=== PATIENT | female | born 1960 | race Caucasian/White ===

== ENCOUNTER 2017-10-28 18:11 | Inpatient (IN) | payer MEDICAID, OTHER ==
[2017-10-28 18:42] LABS: Bilirubin Negative (Negative); Blood, Urine Trace (Negative); Clarity CLEAR (Clear); Glucose, Urine (Dipstick) >=1000 mg/dL (Negative); Leukocyte Negative (Negative); Nitrite Negative (Negative); Protein, Urine (Dipstick) Negative (Neg-Trace); Specific Gravity, Urine 1.034 (1.002-1.036); Urobilinogen 0.2 mg/dL (0.2-1.0)
[2017-10-28 18:59] LABS: Bacteria/HPF 2+ HPF (None Seen); Hyaline Casts/LPF NONE SEEN LPF (0-3 Hyaline); Squamous Epithelial 0-3 HPF (0-3); WBC/HPF 0-3 HPF (0-3)
[2017-10-28] MEDS ORDERED: Lorazepam 2 MG/ML VIAL ONE (19:07)
[2017-10-28 19:11] LABS: Hemoglobin 12.4 g/dL (12.0-16.0); Mean Corpuscular HGB CONC 31.8 g/dL (32.0-36.0); Mean Corpuscular Hemoglobin 31.4 pg (27.0-31.0); Mean Platelet Volume 8.1 fL (7.4-10.4); Platelet Count 249 thou/uL (130-400); RBC Distribution Width 11.7 % (11.5-14.5); Red Blood Cell (RBC) Count 3.94 mill/uL (4.20-5.40)
[2017-10-28 19:25] LABS: Band 20 % (5-11); Lymphocytes 1 % (21-51); MDiff Complete? YES; Monocytes 1 % (0-10); Neutrophil 78 % (42-75); PLT Morphology Comment Appears Adequate; RBC Morphology Normal
[2017-10-28 19:36] LABS: CKMB 2.2 ng/mL (0-6.6)
[2017-10-28 19:41] LABS: ALT (SGPT) 57 U/L (8-55); AST (SGOT) 47 U/L (5-34); Albumin 3.2 g/dL (3.5-5.0); Alcohol Less than 10 mg/dL (Less than 10); Alkaline Phosphatase 147 U/L (40-150); Anion Gap 23 mmol/L (10-20); BUN (Urea Nitrogen) 17 mg/dL (9.8-20.1); Bilirubin, Total 0.5 mg/dL (0.2-1.2); Calc. Creatinine Clearance 0 mL/min (70-130); Calcium 8.3 mg/dL (7.8-10.44); Carbon Dioxide 10 mmol/L (22-29); Chloride 103 mmol/L (98-107); Estimated GFR-MDRD 25; Globulin 2.3 g/dL (2.4-3.5); Magnesium 1.9 mg/dL (1.6-2.6); Potassium 3.9 mmol/L (3.5-5.1); Protein, Total 5.5 g/dL (6.0-8.3); Sodium 132 mmol/L (136-145)
[2017-10-28 19:41] LABS: Acetaminophen Less than 6.0 mcg/mL (10.0-30.0); Alcohol Less than 10 mg/dL (Less than 10); Phosphorus 4.1 mg/dL (2.3-4.7); Salicylate Less than 8.0 mg/dL (15.0-30.0)
--- NOTE | 2017-10-28 19:57 | RAD ---
AP VIEW OF THE CHEST: 10/28/17 INDICATION: Altered mental status. COMPARISON: None. FINDINGS: The lungs are clear. Heart size is within normal limits. There is moderate COPD change. No acute osse ous abnormality is evident. IMPRESSION: COPD. POS: [facility]
[2017-10-28 20:00] LABS: Glucose 1634 mg/dL (70-105)
[2017-10-28] MEDS ORDERED: Sodium Chloride 0.9% 1,000 ML IV PRN ×4 (20:20)
[2017-10-28] MEDS ORDERED: D5 1/2 NS w/20 mEq KCL 1,000 ML IV PRN (20:20)
[2017-10-28] MEDS ORDERED: NS 0.9% w/ 20 MEQ KCL 1,000 ML IV PRN ×2 (20:20)
[2017-10-28] MEDS ORDERED: Dextrose 5 %-0.45 % NaCl 1,000 ML IV PRN (20:20)
[2017-10-28] MEDS ORDERED: CCU Electrolyte Replacement 1 EACH IVPB ONE (20:20)
[2017-10-28] MEDS ORDERED: Labetalol HCl 100 MG/20 ML VIAL ONE (20:27)
[2017-10-28] MEDS ORDERED: Insulin Regular 300 UNITS/3 ML VIAL ONE (20:27)
[2017-10-28 20:29] LABS: Base Excess-Venous -14.8 mmol/L (0 (+/- 2.5)); Bicarbonate (HCO3v) 10.3 mmol/L (1.0-85.0); CO2 Tension (PvCO2) 22.9 mmHg (41.0-51.0); Calcium, Ionized 0.98 mmol/L (1.12-1.32); Hemoglobin - Calc 13.1 g/dL (12.0-18.0); O2 Tension (PvO2) 138.6 mmHg (35.0-45.0); Potassium 3.8 mmol/L (3.4-4.7); pH (Venous) 7.261 (7.35-7.45); vO2 Saturation-calc 98.8 % (94-98)
--- NOTE | 2017-10-28 20:36 | CT ---
CT OF THE BRAIN WITHOUT CONTRAST: 10/28/17 INDICATION: Mental status change. Last seen normal one week ago. COMPARISON: None. FINDINGS: There is a thin linear subdural hematoma overlying the right parietotemporal convexity with a large c ollection measuring 3.4 mm. No midline shift or hydrocephalus is evident. No acute infarct is demonst rated. The skull is intact. Mastoid cells are clear. IMPRESSION: Right parietotemporal subdural hematoma without underlying mass effect. Findings are called to Dr. Lowery at 8 p.m. on 10/28/17. Code CR POS: [facility]
[2017-10-28] MEDS ORDERED: CCU ELECTROLYTE REPLACEMENT PROTOCOL FS PRN (20:37)
[2017-10-28] MEDS ORDERED: Potassium Phosphate 12 MMOL in Sodium Chloride 0.9% 250 ML 250 ML IV PRN (20:37)
[2017-10-28] MEDS ORDERED: Magnesium 2 GM/NS 0.9% 100 ML 2 GM in Premix Bag 1 BAG IVPB PRN (20:37)
[2017-10-28] MEDS ORDERED: Potassium Chloride 40 MEQ in Premix Bag 1 BAG IVPB PRN (20:37)
[2017-10-28] MEDS ORDERED: Magnesium Oxide 400 MG TAB PO PRN ×2 (20:37)
[2017-10-28] MEDS ORDERED: Potassium Chloride 20 MEQ TAB PO PRN (20:37)
[2017-10-28] MEDS ORDERED: Potassium Phosphate 15 MMOL in Sodium Chloride 0.9% 250 ML 250 ML IV PRN (20:37)
[2017-10-28] MEDS ORDERED: Potassium Chloride 40 MEQ in Sodium Chloride 0.9% 250 ML 250 ML IVPB PRN (20:37)
[2017-10-28 20:44] LABS: INR-International Normal Ratio 1.2; PTT 22.9 SEC (22.9-36.1); Prothrombin Time 15.5 SEC (12.0-14.7)
[2017-10-28] MEDS ORDERED: NS 0.9% w/ 20 MEQ KCL 1,000 ML IV SCH (20:45)
[2017-10-28] MEDS ORDERED: Piperacillin/Tazobactam 4.5 GM VIAL ONE (20:45)
[2017-10-28] MEDS ORDERED: Labetalol HCl 100 MG/20 ML VIAL SLOW IVP PRN (20:53)
[2017-10-28] MEDS ORDERED: Pantoprazole 40 MG VIAL IVP SCH (21:00)
[2017-10-28 21:02] LABS: Hemoglobin A1c 16.7 % (4.0-6.0)
[2017-10-28 21:18] LABS: Anion Gap 23 mmol/L (10-20); BUN (Urea Nitrogen) 18 mg/dL (9.8-20.1); Calc. Creatinine Clearance 0 mL/min (70-130); Calcium 8.4 mg/dL (7.8-10.44); Carbon Dioxide 12 mmol/L (22-29); Chloride 106 mmol/L (98-107); Estimated GFR-MDRD 24; Potassium 3.6 mmol/L (3.5-5.1); Sodium 137 mmol/L (136-145)
[2017-10-28 21:21] LABS: CKMB 2.8 ng/mL (0-6.6); Critical Call Chem Troponin I RESULT DECREASING; Glucose 1511 mg/dL (70-105); Troponin I 0.363 ng/mL (< 0.028)
[2017-10-28] MEDS ORDERED: Dextrose 5% in Water 1,000 ML IV PRN (22:53)
[2017-10-28] MEDS ORDERED: Dextrose 50% Abboject 50 ML SYRINGE SLOW IVP PRN (22:53)
[2017-10-28] MEDS ORDERED: RENALLY ADJUST ANTIBIOTICS IVPB PRN (22:58)
[2017-10-28] MEDS ORDERED: Ondansetron HCl/PF 4 MG/2 ML Vial IVP PRN (22:59)
[2017-10-28] MEDS ORDERED: Ondansetron ODT 4 MG TAB SL PRN (22:59)
[2017-10-28] MEDS ORDERED: Acetaminophen 325 MG TAB PO PRN (22:59)
[2017-10-28 23:49] LABS: Amphetamine Not Detected (NotDetected); Barbiturates Screen Not Detected (NotDetected); Benzodiazepine Screen Not Detected (NotDetected); Cocaine Metabolite Screen Not Detected (NotDetected); Medtox Control Line Valid? VALID (VALID); Medtox Reader # READER 1; Methadone Not Detected (NotDetected); Methamphetamine Not Detected (NotDetected); Opiate Screen Not Detected (NotDetected); Oxycodone Screen Not Detected (NotDetected); Phencyclidine (PCP) Not Detected (NotDetected); THC/Cannabinoid Screen Not Detected (NotDetected); Tricyclic Screen Not Detected (NotDetected)
[2017-10-28 23:53] VITALS: BMI 13.3
[2017-10-29] MEDS: Sodium Bicarbonate 50 MEQ in Sodium Chloride 0.45% 1,000 ML IV SCH (00:04)
[2017-10-29 01:12] LABS: Glucose 1167 mg/dL (70-105)
[2017-10-29 01:13] LABS: Lactic Acid 7.6 mmol/L (0.5-2.2)
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
[2017-10-29] MEDS: Insulin Regular 300 UNITS/3 ML VIAL SC PRN ×3 (02:18→12:38)
--- NOTE | 2017-10-29 02:58 | CON ---
DATE OF CONSULTATION: 10/28/2017 HISTORY OF PRESENT ILLNESS: Ms. Johnson is a 57-year-old female who appears to be much older than her stated age. She presents to [facility] for evaluation of mental status changes . She was last seen on Wednesday by her son this week who reports that at that time she has normal men dion status. It was reported that she quit taking her medications last year for hypertension and diab etes. The patient is currently very heavy smoker. Today, she was found at 1600 hour with acute ment al status changes, slightly combative and very confused. After being brought to [facility], a CT of the brain showed a right-sided small subdural hematoma approximately 3 mm in julio meter with no midline shift. She also had an acute kidney injury and glucose of 1511. In addition, her presenting blood pressure was 148/27 and her heart rates were in 130s. She is given labetalol wh ich dropped her blood pressure and heart rate respectively. She is moving all extremities. She is n ot following my commands. She is slightly combative and her pupils are equally round and reactive to light. Her troponins were also elevated at 0.36 and she has COPD on x-ray of the chest. Neurosurge ry was consulted because of the findings on CT scan of the brain. ALLERGIES: No known drug allergies. CURRENT MEDICATIONS: Unknown. PAST MEDICAL HISTORY: The patient is altered. She is a poor historian. Family does not know past m edical history she has other than history of hypertension and diabetes. FEMALE SURGICAL HISTORY: The patient is altered and is unable to respond. PSYCHIATRIC HISTORY: Unable to obtain. SOCIAL HISTORY: The patient is currently uses tobacco. She smokes heavily every day. REVIEW OF SYSTEMS: Unable to obtain a review of systems because of her current mental status state w ith mental status changes. PHYSICAL EXAMINATION: VITAL SIGNS: Reviewed and within normal range. The patient is afebrile. She is tachycardic, hypert ensive, and respiratory rate is normal. GENERAL: The patient looks emaciated and cachectic. The patient is nonverbal, but moving all extrem ities. She looks much older than her stated age. HEENT: Normocephalic, atraumatic. Hearing intact. Moist mucous membranes. Trachea is midline. EYES: Pupils are equally round and reactive to light. Extraocular muscles are intact. Sclerae are white. RESPIRATORY: The patient has bilateral symmetric chest rise, appears to have no shortness of breath. CARDIOVASCULAR: The patient has a tachycardic rate, 2/6 right sternal border murmur. NEUROLOGIC: The patient is moving all extremities. She is unable to follow my commands because of h er acute mental status changes. Her GCS is 11. The patient moves to localized pain. She has confus ed verbal response and she opens her eyes to pain. Her speech is fluent, but she is using words that do not form sentences. There are no focal motor deficits or sensory deficits noted. The patient is not oriented to person, place or time. ASSESSMENT: Ms. Johnson is a 57-year-old female who presents with glucose of 1511, A1c of 16.7, eleva yadiel troponins of 0.36, acute kidney injury, and chronic obstructive pulmonary disease, status post fa ll with a CT of the head that shows a right parietotemporal subdural hematoma with no midline shift. PLAN: Neurosurgery will get a repeat CT scan of the brain without contrast tomorrow morning. Neuro checks overnight. Head of bed at 30 degrees. Medicine will admit to ICU and do medical workup. If there are any further questions, please feel free to contact Neurosurgery.
[2017-10-29] MEDS ORDERED: Piperacillin/Tazobactam 3.375 GM in Sodium Chloride 0.9% 100 ML IVPB SCH (03:00)
[2017-10-29 04:31] LABS: Anion Gap 16 mmol/L (10-20); BUN (Urea Nitrogen) 17 mg/dL (9.8-20.1); Calc. Creatinine Clearance 21 mL/min (70-130); Calcium 9.4 mg/dL (7.8-10.44); Carbon Dioxide 21 mmol/L (22-29); Chloride 115 mmol/L (98-107); Estimated GFR-MDRD 32; Potassium 3.5 mmol/L (3.5-5.1); Sodium 148 mmol/L (136-145)
[2017-10-29 04:33] LABS: CKMB 4.1 ng/mL (0-6.6)
[2017-10-29 05:04] LABS: Lactic Acid 6.1 mmol/L (0.5-2.2); Troponin I 0.799 ng/mL (< 0.028)
[2017-10-29 05:05] LABS: Glucose 778 mg/dL (70-105)
[2017-10-29] MEDS ORDERED: Sodium Chloride 0.9% 500 ML IV SCH (05:15)
[2017-10-29 05:31] LABS: Magnesium 2.2 mg/dL (1.6-2.6); Phosphorus 1.5 mg/dL (2.3-4.7)
[2017-10-29] MEDS ORDERED: Piperacillin/Tazobactam 2.25 GM in Sodium Chloride 0.9% 100 ML IVPB SCH (06:00)
[2017-10-29] MEDS: Potassium Phosphate 9 MMOL in Sodium Chloride 0.9% 100 ML IVPB PRN (06:38)
--- NOTE | 2017-10-29 07:39 | PRG ---
DATE OF SERVICE: 10/29/2017 I personally interviewed and examined the patient and agree with documentation of arden Neri PA-C 10/28/2017. Briefly, Ms. Bere Johnson is a 57-year-old woman who was brought to our emergency department yester day with altered mental status. She is extremely confused and disoriented. She is delirious. CT ex amination of the brain showed a tiny parietal occipital subdural hematoma over the right hemisphere. Neurosurgery was consulted. Her metabolic workup showed diabetic ketoacidosis and a blood sugar of over 1000. Overnight, she has been in the ICU having her metabolic derangement corrected slowly and a CT examination of the brain is available this morning for review. On seeing Ms. Johnson in the ICU, she wakes to her name. She opens her eyes with enough to loud voice with stimulus. She withdraws. She localizes quite well. She even follows some commands today, but she is clearly still in delirium from her metabolic encephalopathy. CT examination this morning shows almost complete resolution of the subdural hematoma. I can barely see any extraaxial fluid in the area of the subdural yesterday. There is no mass effect, no midline shift. She will not need neurosurgical intervention. We will follow up with Ms. Johnson in our neurosurgery offices in about 2-3 weeks. During this hospit alization, our neurosurgery team will be available for questions, but it is very unlikely she would b enefit from our interventional services.
[2017-10-29] MEDS ORDERED: VANC/ZOSYN IVPB PRN (08:27)
--- NOTE | 2017-10-29 08:41 | CT ---
PRELIMINARY REPORT/[facility]/EMERGENTY AFTER-HOURS PROCEDURE CT Head Without Intravenous Contrast CLINICAL HISTORY: 57 years old, female; Condition or disease; Other: Sdh; Patient HX: F/u sdh TECHNIQUE: Axial computed tomography images of the head/brain without intravenous contrast. COMPARISON: CT Brain WO Con 2017-10-28 19:43 FINDINGS: Prior exam showed small acute subdural hematoma in the right temporal and parietal regions. The subdu ral hematoma is now significantly smaller, only barely visible in the right temporal/parietal region. Currently, it only measures 2 mm in maximum thickness, with visible longitudinally length about 1.5-2.0 cm. Previously it measured 4 mm in thickness and significantly longer in longitudinal l ength, up to 7-8 cm. No definite new hemorrhage in the interval. No significant mass effect or midline shift. Ventricle size is normal for age. No definite acute infarct by CT. No definite acute skull fracture. Included paranasal sinuses are essentially clear. IMPRESSION: Significant decrease in size in the previously seen right subdural hematoma, details above. No definite new hemorrhage in the interval. No significant mass effect or midline shift. Thank you for allowing us to participate in the care of your patient. Dictated and Authenticated by: Yg Barker MD 10/29/2017 6:08 AM Central Time ([place] & [place]) FINAL REPORT HEAD CT WITHOUT CONTRAST: DATE: 10/29/17. COMPARISON: 10/28/17. HISTORY: Reevaluate intracranial hemorrhage. FINDINGS: I agree with the preliminary [facility] report. Minimal right-sided subdural blood noted on axial image 1 5, decreased in volume when compared to the prior examination. Imaged paranasal sinuses and mastoid air cells are well aerated. There is no displaced calvarial fracture. IMPRESSION: Minimal right-sided subdural hemorrhage, decreased in volume since the prior examination. No new hem orrhage seen. POS: [facility]
[2017-10-29] MEDS: Pantoprazole 40 MG VIAL IVP SCH ×2 (08:42→21:13)
[2017-10-29 08:51] LABS: Hemoglobin 11.5 g/dL (12.0-16.0); Platelet Count 177 thou/uL (130-400)
[2017-10-29 09:48] LABS: Anion Gap 14 mmol/L (10-20); BUN (Urea Nitrogen) 13 mg/dL (9.8-20.1); Calc. Creatinine Clearance 28 mL/min (70-130); Calcium 8.8 mg/dL (7.8-10.44); Carbon Dioxide 23 mmol/L (22-29); Chloride 123 mmol/L (98-107); Estimated GFR-MDRD 46; Glucose 387 mg/dL (70-105); Sodium 156 mmol/L (136-145)
[2017-10-29] MEDS: Sodium Chloride 0.45% 1,000 ML IV SCH ×3 (10:13→22:19)
[2017-10-29] MEDS: Vancomycin HCl 750 MG in Sodium Chloride 0.9% 250 ML 250 ML IVPB SCH (10:50)
--- NOTE | 2017-10-29 11:34 | PRG ---
DATE OF SERVICE: 10/29/2017 SUBJECTIVE: Ms. Johnson is a 57-year-old female who I saw in her ICU room this morning. She is status post right-sided subdural hematoma as well as multiple other medical issues. This morning, her blood glucose has dropped to 778 from 1511. Her sodium this morning is 148. She had a repeat CT scan done of the brain this morning that showed almost complete resolution of the right-sided subdural hematoma. There is plenty of room in the cranial vault for her brain and I am not worried about compression or increased pressure. Her neurologic status has improved since her blood sugars have improved bust are still significantly high. Neurologically, she is able to follow my commands now. Her cranial nerves are intact. She is still at somewhat confused at baseline; however, at this time, there is no neurosurgical indication. If Mr. Garcia neurological function worsens, please call neurosurgery back. If there is any further question, please feel free to contact neurosurgery. SALIMA
[2017-10-29] MEDS: Piperacillin/Tazobactam 2.25 GM in Sodium Chloride 0.9% 100 ML IVPB SCH ×2 (12:10→17:47)
[2017-10-29 12:53] LABS: Troponin I 0.913 ng/mL (< 0.028)
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
--- NOTE | 2017-10-29 13:19 | CON ---
DATE OF CONSULTATION: 10/29/2017 HISTORY OF PRESENT ILLNESS: Ms. Johnson is a 57-year-old female. History is obtained from her and co nfirmed by her son. She presented with altered mental status. He says she has diabetes, but does not take care of hersel f and does not take her medicine. She actually weighs 77 pounds. Her son saw her last on Wednesday and said she was doing well. He went to see her today and she was co mplaining of headache and feeling weak. He decided to bring her to the emergency room. As I explain ed to him, he probably saved her life. PAST MEDICAL HISTORY: 1. Remarkable for diabetes. 2. Hypertension. PAST SURGICAL HISTORY: She has never had surgery. SOCIAL HISTORY: She is a pack a day smoker. She is a nondrinker. Past notes have stated that she i s a daily drinker. REVIEW OF SYSTEMS: Accurate review of systems not obtainable. MEDICATIONS PRIOR INJURIES TO ADMISSION: None according to him. PHYSICAL EXAMINATION: VITAL SIGNS: Blood pressure 95/63, heart rate is 85, respiratory rate is 17, oximetry is 100%. HEENT: Pupils are equal. Sclerae is anicteric. She is extremely cachectic appearing 30 years older than her age. NECK: Supple, no lymphadenopathy. LUNGS: Clear. HEART: Regular rhythm, no S3. ABDOMEN: Soft and nontender. EXTREMITIES: Without clubbing, cyanosis, or edema. NEUROLOGIC: Nonfocal. LABORATORY AND X-RAY FINDINGS: White count yesterday was 23, hemoglobin 12.4, it is 11.5 today. Lucia telets 249,000. The first electrolytes at 8:43 last night; sodium 137, potassium 3.6, chloride 106, bicarbonate 12, BUN 18, creatinine 2.09, glucose was 1511. At midnight it was 1167. She received 10 units of insulin as I recommended the emergency room, I am told. She is not on insulin drip and in my opinion does not need an insulin drip. IMPRESSION: Hyperosmolar coma secondary to poor p.o. intake combined with uncontrolled diabetes. Th e treatment of choice is hydration. She does not need an insulin drip. Gradual correction of her gl ucoses is most appropriate with a glucose of 778 at 3:25 now 387. This is on a very reasonable path of correction, would not recommend aggressive insulin therapy. I would continue with IV hydration fa irly aggressively and probably tomorrow transition her out of the ICU. As always, she is at risk for developing cerebral edema with correction of her glucoses, but hopefully she will continue in stable fashion. Antibiotics can be discontinued if there is no clear indication for antimicrobial therapy at this point in time. I discontinued this and this was restarted by Edel. I reviewed her chest x-ray. She has an unremarkable chest x-ray. Her head CT also shows a right sub dural that is old and actually on followup CT it is smaller. This is probably a subacute incidental finding and has nothing to do with her altered mental status. Critical care time 40 minutes.
--- NOTE | 2017-10-29 13:23 | PDOC.PN ---
- Subjective Encounter Start Date: 10/29/17 Encounter Start Time: 10:00 -: old records requested/rev Patient seen and examined. No overnight events son present bedside - Objective MAR Reviewed: Yes Vital Signs & Weight: Vital Signs (12 hours) Temp Pulse Resp Pulse Ox 10/29/17 12:00 98.1 F 10/29/17 07:13 100 10/29/17 07:12 98.5 F 92 13 100 10/29/17 07:00 98.5 F 10/29/17 03:00 97.9 F Weight Admit Weight 77 lb 9.643 oz Weight 77 lb 9.643 oz Most Recent Monitor Data Heart Rate from ECG 86 NIBP 86/59 NIBP BP-Mean 66 Respiration from ECG 19 SpO2 100 I&O: 10/28/17 10/29/17 10/30/17 06:59 06:59 06:59 Intake Total 1647 Output Total 3100 420 Balance -1453 -420 Result Diagrams: 10/29/17 08:39 10/29/17 08:39 Additional Labs: Accuchecks 10/29/17 10/29/17 10/28/17 11:57 09:31 21:11 POC Glucose 268 H 351 H Greater than 550 H* EKG Reviewed by me: Yes (nsr) Phys Exam - Physical Examination Constitutional: NAD HEENT: PERRLA, sclera anicteric dry MM Neck: no nodes, no JVD, supple Respiratory: no wheezing, no rales, no rhonchi Cardiovascular: RRR, no significant murmur, no rub Gastrointestinal: soft, non-tender, no distention, positive bowel sounds Musculoskeletal: no edema, pulses present Neurological: moves all 4 limbs Lymphatic: no nodes Psychiatric: normal affect Skin: no rash, normal turgor Dx/Plan (1) Acute hyperglycemia Code(s): R73.9 - HYPERGLYCEMIA, UNSPECIFIED Status: Acute (2) Acute kidney failure Status: Acute (3) Acute metabolic encephalopathy Code(s): G93.41 - METABOLIC ENCEPHALOPATHY Status: Acute (4) Demand ischemia of myocardium Code(s): I24.8 - OTHER FORMS OF ACUTE ISCHEMIC HEART DISEASE Status: Acute (5) Hypophosphatemia Code(s): E83.39 - OTHER DISORDERS OF PHOSPHORUS METABOLISM Status: Acute (6) Hypotension Status: Acute (7) Lactic acidosis Code(s): E87.2 - ACIDOSIS Status: Acute (8) Sepsis with acute organ dysfunction Code(s): A41.9 - SEPSIS, UNSPECIFIED ORGANISM; R65.20 - SEVERE SEPSIS WITHOUT SEPTIC SHOCK Status: Acute (9) Subdural hematoma Code(s): I62.00 - NONTRAUMATIC SUBDURAL HEMORRHAGE, UNSPECIFIED Status: Acute - Plan cont current plan of care, plan discussed w/ family, continue antibiotics * continue IVF * for hypotension bolus fluid given * will control hyperglycemia gently * continue empiric antibiotics as ordered * medication reviewed as below * symptomatic treatment * discussed with son. * check HbA1c and lipid profile * echo pending * cardiology and pulmonary following Review of Systems - Review of Systems Other: unable to review due to metabolic encephalopathy - Medications/Allergies Allergies/Adverse Reactions: Allergies Allergy/AdvReac Type Severity Reaction Status Date / Time No Allergy Information Allergy Unverified 10/28/17 20:33 Available Medications: Current Medications Dextrose/Water (Dextrose 50%) 25 gm SLOW IVP PRN PRN PRN Reason: Hypoglycemia Glucagon (Glucagon) 1 mg IM PRN PRN PRN Reason: Hypoglycemia Potassium Chloride 40 meq/ (Sodium Chloride) 270 mls @ 135 mls/hr IVPB ASDIR PRN PRN Reason: FOR SERUM K+ 2.5 - 3.5 Last Admin: 10/29/17 06:38 Dose: 270 mls Potassium Chloride 40 meq/ (Device) 100 mls @ 50 mls/hr IVPB ASDIR PRN PRN Reason: FOR SERUM K+ 2.5 - 3.5 Magnesium Sulfate 1 gm/ Sodium (Chloride) 102 mls @ 102 mls/hr IV PRN PRN PRN Reason: MAG LEVEL 1.4 - 2.0 Magnesium Sulfate 2 gm/ Device 100 mls @ 100 mls/hr IVPB ASDIR PRN PRN Reason: MAGNESIUM < 1.4 Potassium Phosphate 9 mmol/ (Sodium Chloride) 103 mls @ 25.75 mls/hr IVPB ASDIR PRN PRN Reason: Phosphate 1.0-1.8 Last Admin: 10/29/17 06:38 Dose: 103 mls Potassium Phosphate 12 mmol/ (Sodium Chloride) 254 mls @ 63.5 mls/hr IV ASDIR PRN PRN Reason: Serum phosphate 0.5-0.9 Potassium Phosphate 15 mmol/ (Sodium Chloride) 255 mls @ 63.75 mls/hr IV ASDIR PRN PRN Reason: Serum Phos < 0.5 Dextrose/Water (D5w) 1,000 mls @ 0 mls/hr IV .Q0M PRN; As Directed PRN Reason: Hypoglycemia Piperacillin Sod/Tazobactam (Sod 2.25 gm/ Sodium Chloride) 100 mls @ 200 mls/ hr IVPB Q6HR [facility] Last Admin: 10/29/17 12:10 Dose: 100 mls Sodium Chloride (1/2 Normal Saline) 1,000 mls @ 150 mls/hr IV .Q6H40M [facility] Last Admin: 10/29/17 10:13 Dose: 1,000 mls Vancomycin HCl 750 mg/ Sodium (Chloride) 250 mls @ 250 mls/hr IVPB NOW [facility] Stop: 10/30/17 10:00 Last Admin: 10/29/17 10:50 Dose: 250 mls Vancomycin HCl 750 mg/ Sodium (Chloride) 250 mls @ 250 mls/hr IVPB .DOSE BY LEVELS [facility] Insulin Human Regular (Humulin R) 0 units SC .MODERATE SLIDING SC PRN PRN Reason: Moderate Correctional Scale Last Admin: 10/29/17 12:38 Dose: 6 unit Labetalol HCl (Normodyne) 5 mg SLOW IVP Q4H PRN PRN Reason: SBP Greater Than 180 Magnesium Oxide (Magnesium Oxide) 400 mg PO BIDPRN PRN PRN Reason: FOR SERUM MAG 1.4 - 2.0 Magnesium Oxide (Magnesium Oxide) 800 mg PO PRN PRN PRN Reason: FOR SERUM MAG < 1.4 Miscellaneous Medication (Phos-Nak) 1 pkt PO TIDPRN PRN PRN Reason: FOR PHOS LEVEL 1.0 - 1.8 Miscellaneous Medication (Phos-Nak) 2 pkt PO TIDPRN PRN PRN Reason: FOR PHOS LEVEL 0.5 - 1.0 Miscellaneous Medication (Pharmacy To Dose) 1 each IVPB PRN PRN PRN Reason: Pharmacy to dose Ccu Electrolyte (Replacement Protocol) 0 each FS PRN PRN PRN Reason: FOR ELECTROLYTE REPLACEMENT Pantoprazole Sodium (Protonix) 40 mg IVP Q12HR [facility] Last Admin: 10/29/17 08:42 Dose: 40 mg Potassium Chloride (K-Dur) 40 meq PO ASDIR PRN PRN Reason: FOR SERUM K+ 2.5 - 3.5 Potassium Chloride (Klor-Con) 40 meq PER TUBE ASDIR PRN PRN Reason: FOR SERUM K+ 2.5-3.5 Sodium Chloride (Flush - Normal Saline) 10 ml IVF Q12HR [facility] Last Admin: 10/29/17 08:42 Dose: 10 ml Sodium Chloride (Flush - Normal Saline) 10 ml IVF PRN PRN PRN Reason: Saline Flush
[2017-10-29] MEDS ORDERED: Vancomycin HCl 750 MG in Sodium Chloride 0.9% 250 ML 250 ML IVPB SCH (13:30)
--- NOTE | 2017-10-29 14:49 | PQF ---
CLINICAL DOCUMENTATION IMPROVEMENT CLARIFICATION FORM: ICD-10 Updated PLEASE DO AN ADDENDUM TO THE PROGRESS NOTE WITH ANY DOCUMENTATION UPDATES OR ADDITIONS AND CARRY THROUGH TO DC SUMMARY. THANK YOU. Date: 10/29 ATTN: DR. KYLER COLLADO Please exercise your independent, professional judgment in responding to the clarification form. Clinical indicators are provided on the bottom of this form for your review Please check appropriate box(s): [ x ] Protein Calorie Malnutrition: [ ] Mild [ x ] Moderate [ ] Severe [ ] Other Malnutrition (please specify) __ [ ] Other diagnosis [ ] Unable to determine CLINICAL INDICATORS - SIGNS / SYMPTOMS / LABS BMI: 13.3 ER PHYSICIAN DOCUMENTATION 10/28: PATIENT LOOKS EMACIATED AND CACHECTIC PHYSICIAN H&P DOCUMENTATION 10/28: PHYSICAL EXAM: GENERAL: THE PATIENT APPEARS VERY MALNOURISHED, VERY DEHYDRATED NEUROSURGERY CONSULT DOCUMENTATION 10/28: PHYSICAL EXAM: GENERAL: THE PATIENT LOOKS EMACIATED & CACHECTIC NUTRITION ASSESSMENT 10/29: MUSCLE WASTING NOTED RISK FACTORS: DOES NOT EAT MUCH PER SON DM II LOW BMI TREATMENT: [employer] CONSULT FOR LOW BMI Moderate Malnutrition (in acute illness) Energy Intake: <75% of estimated energy requirement for > 7 days Weight Loss: 1-2%/1 week; 5%/ 1 month; 7.5%/3 months Other: mild body fat loss; mild muscle mass loss; mild fluid accumulation; Severe Malnutrition (in acute illness) Energy Intake: < 50% of estimated energy requirement for > 5 days Weight Loss: >1-2%/1 week; >5%/1 month; >7.5%/3 months Other: moderate body fat loss; moderate muscle mass loss; moderate- severe fluid accumulation; measurably reduced mold closer strength Moderate Malnutrition (in chronic illness) Energy Intake: <75% of estimated energy requirement for >1 month Weight Loss: 5%/1 month; 7.5%/3 months; 10%/6 months; 20%/1 year Other: mild body fat loss; mild muscle mass loss; mild fluid accumulation Severe Malnutrition (in chronic illness) Energy Intake: <75% of estimated energy requirement for >1 month Weight Loss: >5%/1 month; >7.5%/3 months; >10%/6 months; >20%/1 year Other: severe body fat loss; severe muscle mass loss; severe fluid accumulation; measurably reduced mold closer strength THANK YOU! Ruth (This form is maintained as a part of the permanent medical record) 2014 [employer]. All Rights Reserved Ruth Carrizales RN, BSN [email or web address] Office: [phone] [facility]
[2017-10-29] MEDS ORDERED: Sodium Chloride 0.9% 1,000 ML IV SCH (20:45)
[2017-10-30] MEDS: Piperacillin/Tazobactam 2.25 GM in Sodium Chloride 0.9% 100 ML IVPB SCH ×5 (00:18→23:58)
[2017-10-30] MEDS: Insulin Regular 300 UNITS/3 ML VIAL SC PRN ×2 (01:45→06:08)
[2017-10-30] MEDS: Sodium Bicarbonate 50 MEQ in Sodium Chloride 0.45% 1,000 ML IV SCH (02:16)
[2017-10-30 05:02] LABS: Anion Gap 9 mmol/L (10-20); BUN (Urea Nitrogen) 13 mg/dL (9.8-20.1); Calc. Creatinine Clearance 36 mL/min (70-130); Calcium 7.5 mg/dL (7.8-10.44); Carbon Dioxide 18 mmol/L (22-29); Cardiac Risk 5.7 (Less than 4.5); Chloride 116 mmol/L (98-107); Cholesterol 137 mg/dl (< 200 Desired); Estimated GFR-MDRD 60; Glucose 173 mg/dL (70-105); HDL Cholesterol 24 mg/dL (>60 Neg Risk); LDL Cholesterol, Calculated 93 mg/dL; Magnesium 1.4 mg/dL (1.6-2.6); Potassium 3.3 mmol/L (3.5-5.1); Sodium 140 mmol/L (136-145); Triglycerides 99 mg/dL (Less than 150)
[2017-10-30 05:03] LABS: Hemoglobin A1c 17.3 % (4.0-6.0)
[2017-10-30 05:05] LABS: Phosphorus 1.6 mg/dL (2.3-4.7)
[2017-10-30] MEDS: Sodium Chloride 0.45% 1,000 ML IV SCH ×3 (05:29→21:33)
[2017-10-30] MEDS: Potassium Phosphate 9 MMOL in Sodium Chloride 0.9% 100 ML IVPB PRN (05:31)
[2017-10-30] MEDS: Pantoprazole 40 MG VIAL IVP SCH ×2 (08:05→21:34)
[2017-10-30] MEDS ORDERED: Sodium Chloride 0.9% 1,000 ML IV SCH (09:45)
--- NOTE | 2017-10-30 10:18 | PRG ---
DATE OF SERVICE: 10/30/2017 SUBJECTIVE: The patient is awake, alert, and in no distress. PHYSICAL EXAMINATION: VITAL SIGNS: Temperature is 99.0, pulse 76, blood pressure systolic ranging between 70s and 90s. To dion intake for 24 hours is 6954, output 965. HEENT: Unremarkable. NECK: No JVD. CHEST: Clear without wheezing or rhonchi. CARDIAC: S1 and S2 regular. ABDOMEN: Soft. EXTREMITIES: No edema. LABORATORY DATA: Sodium 140, potassium 3.3, chloride 116, CO2 18, BUN 13, creatinine 0.9, glucose 17 3. White blood cell count 23, hemoglobin 11.5, hematocrit 32.2, platelet count 177. ASSESSMENT: Hyperosmolar coma secondary to diabetes and poor oral intake. In my opinion, she is pro bably still dry. PLAN: 1. Bolus another liter of IV fluids. Continue in the ICU at this time, because her blood pressure i s still marginally low. 2. Continue the IV antibiotics until 48 hour cultures come back. If the cultures are negative, cons ider discontinuing the antibiotics.
[2017-10-30 10:19] LABS: Vancomycin, Random 5.8 ug/mL (See Comment)
[2017-10-30] MEDS ORDERED: Vancomycin HCl 750 MG in Sodium Chloride 0.9% 250 ML 250 ML IVPB SCH (11:00)
[2017-10-30] MEDS: Vancomycin HCl 750 MG in Sodium Chloride 0.9% 250 ML 250 ML IVPB SCH (11:06)
--- NOTE | 2017-10-30 11:22 | ADD-CON ---
ADDENDUM INDICATION FOR CONSULTATION: A 57-year-old female who has multiple medical problems who became unres ponsive, has insulin-dependent diabetes, was dehydrated and has apparently been having falls, has had a subdural hematoma. The patient was admitted to the hospital and was found to have diabetic ketoac idosis. She also had a hemoglobin A1c of 16.7. Apparently, she has some mental issues, has been matt ing in a home with several other adults which are not family members and has been noncompliant with h er medications apparently. We were asked to see her due to an abnormal cardiac enzyme with a slight elevation of the troponin I which would not be unusual in someone with these multiple medical problem s with dehydration and falls as well as her diabetes and most likely some renal insufficiency, but he r creatinine was 1.2, but she is very emaciated, has minimal muscle mass. At this time, the patient i s unresponsive and very lethargic. She appears to be otherwise not in any acute distress. Please re ezequiel to the notes already dictated by my nurse practitioner for the complete history and physical, pas t medical history, social history, family history, review of medications, as well as the allergies. At this time, her present medications include IV fluids, Protonix. She has been placed on antibiotic s in the form of Zosyn. She is on vancomycin. She has been given Tylenol, Zofran, other p.r.n. medi cations and replacement therapy for her DKA. From a cardiac standpoint, she appears to be relatively stable. I will review her echocardiogram for further evaluation. Further cardiology recommendation s will depend on the echocardiogram and how she progresses with this hospital stay. LABORATORY DATA: WBC of 23,000, hemoglobin was 12.4, platelet count was 249,000. Her lactic acid wa s 6.1. Her troponin I was 0.91, blood sugars were in the 300 range, but actually on admission, I bel ieve over a 1000 and troponin I that time was 0.79. The original one on admission was 0.36 with a BN P of 889. IMPRESSION: 1. Diabetic ketoacidosis in a patient and also dehydration. She is having volume replacement at thi s time, this will be dealt by the primary care service. 2. Abnormal cardiac enzymes which would not be unusual in someone with this degree of DKA and also r enal insufficiency. Her creatinine originally was 2.05. This has improved volume replacement. Her creatinine today is 1.2, sodium remains at 156. 3. Hypernatremia. Again associated with her diabetes and dehydration. This is also being replaced are as being dealt at this time with slow IV fluid replacement. This does not appear that she has will d any significant acute ST segment elevation myocardial infarction and further recommendations will d epend on the results of the echocardiogram. Also, please note she does have a metabolic encephalopat hy. She also most likely has some underlying psychological events. 4. History of subdural hematomas. 5. Possible sepsis with elevated white blood cell count. I will be more than happy to continue to follow the patient with you and as noted, further recommenda tions will depend on the results of the echocardiogram.
[2017-10-30] MEDS ORDERED: Magnesium Sulfate 1 GM, Admixture Fee 1 EACH in Sodium Chloride 0.9% 100 ML IVPB SCH (12:15)
--- NOTE | 2017-10-30 12:16 | PDOC.PN ---
- Subjective Encounter Start Date: 10/30/17 Encounter Start Time: 10:00 pt is more alert, still dehydrated, still hypotensive - Objective MAR Reviewed: Yes Vital Signs & Weight: Vital Signs (12 hours) Temp Pulse Resp Pulse Ox 10/30/17 11:59 97.7 F 10/30/17 08:00 99.0 F 80 13 98 10/30/17 01:00 98.2 F Weight Admit Weight 77 lb 9.643 oz Weight 77 lb 9.643 oz Most Recent Monitor Data Heart Rate from ECG 71 NIBP 92/60 NIBP BP-Mean 65 Respiration from ECG 18 SpO2 98 I&O: 10/29/17 10/30/17 10/31/17 06:59 06:59 06:59 Intake Total 1647 6954 1250 Output Total 3100 965 73 Balance -1453 5989 1177 Result Diagrams: 10/29/17 08:39 10/30/17 04:10 Additional Labs: Accuchecks 10/30/17 10/30/17 10/29/17 08:13 01:46 21:23 POC Glucose 110 225 H 173 H 10/29/17 15:54 POC Glucose 108 EKG Reviewed by me: Yes (nsr) Phys Exam - Physical Examination Constitutional: NAD HEENT: PERRLA, sclera anicteric Neck: no JVD, supple Respiratory: no wheezing, no rales, no rhonchi Cardiovascular: RRR, no significant murmur, no rub Gastrointestinal: soft, non-tender, no distention, positive bowel sounds Musculoskeletal: no edema, pulses present Neurological: non-focal Lymphatic: no nodes Psychiatric: normal affect Skin: no rash, normal turgor Dx/Plan (1) Acute hyperglycemia Code(s): R73.9 - HYPERGLYCEMIA, UNSPECIFIED Status: Acute (2) Acute kidney failure Status: Acute (3) Acute metabolic encephalopathy Code(s): G93.41 - METABOLIC ENCEPHALOPATHY Status: Acute (4) Demand ischemia of myocardium Code(s): I24.8 - OTHER FORMS OF ACUTE ISCHEMIC HEART DISEASE Status: Acute (5) Hypophosphatemia Code(s): E83.39 - OTHER DISORDERS OF PHOSPHORUS METABOLISM Status: Acute (6) Hypotension Status: Acute (7) Lactic acidosis Code(s): E87.2 - ACIDOSIS Status: Acute (8) Sepsis with acute organ dysfunction Code(s): A41.9 - SEPSIS, UNSPECIFIED ORGANISM; R65.20 - SEVERE SEPSIS WITHOUT SEPTIC SHOCK Status: Acute (9) Subdural hematoma Code(s): I62.00 - NONTRAUMATIC SUBDURAL HEMORRHAGE, UNSPECIFIED Status: Acute (10) Hyperosmolar non-ketotic state in patient with type 2 diabetes mellitus Code(s): E11.01 - TYPE 2 DIABETES MELLITUS WITH HYPEROSMOLARITY WITH COMA Status: Acute (11) Hypomagnesemia Code(s): E83.42 - HYPOMAGNESEMIA Status: Acute (12) Protein-calorie malnutrition, moderate Code(s): E44.0 - MODERATE PROTEIN-CALORIE MALNUTRITION Status: Chronic - Plan cont current plan of care * continue IVF * replace potassium phosphate, magnesium * blood sugar controlled * continue empiric antibiotics, if culture negative, will stop * medication reviewed as below * symptomatic treatment * monitor in CCU. Review of Systems - Review of Systems ENT: negative: Ear Pain, Ear Discharge, Nose Pain, Nose Discharge, Nose Congestion, Mouth Pain, Mouth Swelling, Throat Pain, Throat Swelling, Other Respiratory: negative: Cough, Dry, Shortness of Breath, Hemoptysis, SOB with Excertion, Pleuritic Pain, Sputum, Wheezing Cardiovascular: negative: chest pain, palpitations, orthopnea, paroxysmal nocturnal dyspnea, edema, light headedness, other Gastrointestinal: negative: Nausea, Vomiting, Abdominal Pain, Diarrhea, Constipation, Melena, Hematochezia, Other Genitourinary: negative: Dysuria, Frequency, Incontinence, Hematuria, Retention , Other Musculoskeletal: negative: Neck Pain, Shoulder Pain, Arm Pain, Back Pain, Hand Pain, Leg Pain, Foot Pain, Other - Medications/Allergies Allergies/Adverse Reactions: Allergies Allergy/AdvReac Type Severity Reaction Status Date / Time No Allergy Information Allergy Unverified 10/28/17 20:33 Available Medications: Current Medications Dextrose/Water (Dextrose 50%) 25 gm SLOW IVP PRN PRN PRN Reason: Hypoglycemia Glucagon (Glucagon) 1 mg IM PRN PRN PRN Reason: Hypoglycemia Potassium Chloride 40 meq/ (Sodium Chloride) 270 mls @ 135 mls/hr IVPB ASDIR PRN PRN Reason: FOR SERUM K+ 2.5 - 3.5 Last Admin: 10/29/17 06:38 Dose: 270 mls Potassium Chloride 40 meq/ (Device) 100 mls @ 50 mls/hr IVPB ASDIR PRN PRN Reason: FOR SERUM K+ 2.5 - 3.5 Magnesium Sulfate 1 gm/ Sodium (Chloride) 102 mls @ 102 mls/hr IV PRN PRN PRN Reason: MAG LEVEL 1.4 - 2.0 Magnesium Sulfate 2 gm/ Device 100 mls @ 100 mls/hr IVPB ASDIR PRN PRN Reason: MAGNESIUM < 1.4 Potassium Phosphate 9 mmol/ (Sodium Chloride) 103 mls @ 25.75 mls/hr IVPB ASDIR PRN PRN Reason: Phosphate 1.0-1.8 Last Admin: 10/30/17 05:31 Dose: 103 mls Potassium Phosphate 12 mmol/ (Sodium Chloride) 254 mls @ 63.5 mls/hr IV ASDIR PRN PRN Reason: Serum phosphate 0.5-0.9 Potassium Phosphate 15 mmol/ (Sodium Chloride) 255 mls @ 63.75 mls/hr IV ASDIR PRN PRN Reason: Serum Phos < 0.5 Dextrose/Water (D5w) 1,000 mls @ 0 mls/hr IV .Q0M PRN; As Directed PRN Reason: Hypoglycemia Piperacillin Sod/Tazobactam (Sod 2.25 gm/ Sodium Chloride) 100 mls @ 200 mls/ hr IVPB Q6HR [facility] Last Admin: 10/30/17 11:59 Dose: 100 mls Sodium Chloride (1/2 Normal Saline) 1,000 mls @ 150 mls/hr IV .Q6H40M [facility] Last Admin: 10/30/17 05:29 Dose: 1,000 mls Vancomycin HCl 750 mg/ Sodium (Chloride) 250 mls @ 250 mls/hr IVPB 1100 [facility] Last Admin: 10/30/17 11:59 Dose: 250 mls Magnesium Sulfate 1 gm/ Sodium (Chloride) 102 mls @ 100 mls/hr IVPB ONE [facility] Insulin Human Regular (Humulin R) 0 units SC .MODERATE SLIDING SC PRN PRN Reason: Moderate Correctional Scale Last Admin: 10/30/17 06:08 Dose: 2 unit Labetalol HCl (Normodyne) 5 mg SLOW IVP Q4H PRN PRN Reason: SBP Greater Than 180 Magnesium Oxide (Magnesium Oxide) 400 mg PO BIDPRN PRN PRN Reason: FOR SERUM MAG 1.4 - 2.0 Magnesium Oxide (Magnesium Oxide) 800 mg PO PRN PRN PRN Reason: FOR SERUM MAG < 1.4 Miscellaneous Medication (Phos-Nak) 1 pkt PO TIDPRN PRN PRN Reason: FOR PHOS LEVEL 1.0 - 1.8 Miscellaneous Medication (Phos-Nak) 2 pkt PO TIDPRN PRN PRN Reason: FOR PHOS LEVEL 0.5 - 1.0 Miscellaneous Medication (Pharmacy To Dose) 1 each IVPB PRN PRN PRN Reason: Pharmacy to dose Ccu Electrolyte (Replacement Protocol) 0 each FS PRN PRN PRN Reason: FOR ELECTROLYTE REPLACEMENT Pantoprazole Sodium (Protonix) 40 mg IVP Q12HR [facility] Last Admin: 10/30/17 08:05 Dose: 40 mg Potassium Chloride (K-Dur) 40 meq PO ASDIR PRN PRN Reason: FOR SERUM K+ 2.5 - 3.5 Potassium Chloride (Klor-Con) 40 meq PER TUBE ASDIR PRN PRN Reason: FOR SERUM K+ 2.5-3.5 Last Admin: 10/30/17 05:32 Dose: 40 meq Sodium Chloride (Flush - Normal Saline) 10 ml IVF Q12HR [facility] Last Admin: 10/30/17 08:05 Dose: 10 ml Sodium Chloride (Flush - Normal Saline) 10 ml IVF PRN PRN PRN Reason: Saline Flush
--- NOTE | 2017-10-30 18:13 | PRG ---
DATE OF SERVICE: 10/30/2017 SUBJECTIVE: Ms. Cerrato is doing well. No chest pain or pressure. She is awake and alert. PHYSICAL EXAMINATION: VITAL SIGNS: Her blood pressure is 105/69 earlier, now is 145/80, pulse 78, it is regular, sinus. LUNGS: Clear. CARDIAC: Normal S1, normal S2. ASSESSMENT: 1. Subdural hematoma. 2. Increased troponin level. 3. Asymptomatic from a cardiac standpoint. Continue current medical regimen.
[2017-10-31 05:26] LABS: Anion Gap 14 mmol/L (10-20); BUN (Urea Nitrogen) 14 mg/dL (9.8-20.1); Calc. Creatinine Clearance 43 mL/min (70-130); Calcium 7.9 mg/dL (7.8-10.44); Carbon Dioxide 12 mmol/L (22-29); Chloride 113 mmol/L (98-107); Estimated GFR-MDRD 74; Glucose 165 mg/dL (70-105); Potassium 4.3 mmol/L (3.5-5.1); Sodium 135 mmol/L (136-145)
[2017-10-31] MEDS: Piperacillin/Tazobactam 2.25 GM in Sodium Chloride 0.9% 100 ML IVPB SCH ×4 (05:55→23:50)
[2017-10-31] MEDS: Sodium Chloride 0.45% 1,000 ML IV SCH ×4 (05:55→21:51)
--- NOTE | 2017-10-31 08:18 | PRG ---
DATE OF SERVICE: 10/31/2017 SUBJECTIVE: Ms. Johnson is in better spirits today. She says she feels back to her baseline. OBJECTIVE: VITAL SIGNS: Temperature 98.1, pulse 69, blood pressure 106/67. A 24-hour intake 5794, output 1661. HEENT: Unremarkable. NECK: No JVD. CHEST: Clear. CARDIAC: S1, S2 regular. ABDOMEN: Soft. EXTREMITIES: No edema. LABORATORY DATA: Sodium 135, potassium 4.3, chloride 113, CO2 12, BUN 14, creatinine 0.8, glucose 16 5. ASSESSMENT: Hyperosmolar coma secondary to diabetes and poor oral intake. PLAN: 1. Change IV fluids as she is developing a non-anion gap metabolic acidosis. 2. Can transfer out to the floor. 3. Stop the vancomycin since cultures seem to be limited to gram negative rods.
[2017-10-31] MEDS: Multivitamin W/ Minerals 1 TAB PO SCH (08:19)
[2017-10-31] MEDS: Cyanocobalamin (Vitamin B-12) 1,000 MCG TAB PO SCH (08:19)
[2017-10-31] MEDS: Folic Acid 1 MG TAB PO SCH (08:19)
[2017-10-31] MEDS: Ferrous Sulfate 325 MG TAB PO SCH (08:19)
--- NOTE | 2017-10-31 09:13 | PRG ---
DATE OF SERVICE: 10/31/2017 SUBJECTIVE: Ms. Johnson is doing fine today. No chest pain or pressure. Feels great. OBJECTIVE: VITAL SIGNS: Blood pressure 106/67, earlier 120/60, pulse 68. LUNGS: Clear. CARDIAC: Normal S1 and normal S2. ASSESSMENT: 1. History of diabetic ketoacidosis. 2. Slight increased troponin, probably related to diabetic ketoacidosis. PLAN: Okay to move out of the Intensive Care Unit. May need some further evaluation from a cardiac standpoint later as an outpatient. Dr. Polo resume care tomorrow.
--- NOTE | 2017-10-31 10:48 | PDOC.PN ---
- Subjective Encounter Start Date: 10/31/17 Encounter Start Time: 10:00 Patient seen and examined. No new complaints. No overnight events - Objective MAR Reviewed: Yes Vital Signs & Weight: Vital Signs (12 hours) Temp Pulse Resp Pulse Ox 10/31/17 09:29 91 L 10/31/17 08:00 99.3 F 10/31/17 07:18 98.1 F 68 21 H 96 Weight Admit Weight 71 lb 10.404 oz Weight 77 lb 9.643 oz Most Recent Monitor Data Heart Rate from ECG 75 NIBP 106/74 NIBP BP-Mean 80 Respiration from ECG 25 SpO2 98 I&O: 10/30/17 10/31/17 11/01/17 06:59 06:59 06:59 Intake Total 6954 5784 250 Output Total 966 1661 515 Balance 5989 4123 -265 Result Diagrams: 10/29/17 08:39 10/31/17 03:48 Additional Labs: Accuchecks 10/30/17 10/30/17 10/30/17 21:06 16:23 12:09 POC Glucose 157 H 110 90 EKG Reviewed by me: Yes (nsr) Phys Exam - Physical Examination Constitutional: NAD HEENT: PERRLA, moist MMs, sclera anicteric Neck: no JVD, supple Respiratory: no wheezing, no rales, no rhonchi Cardiovascular: RRR, no significant murmur, no rub Gastrointestinal: soft, non-tender, no distention, positive bowel sounds Musculoskeletal: no edema, pulses present Neurological: non-focal, normal sensation, moves all 4 limbs Lymphatic: no nodes Psychiatric: normal affect, A&O x 3 Skin: no rash, normal turgor Dx/Plan (1) Acute hyperglycemia Code(s): R73.9 - HYPERGLYCEMIA, UNSPECIFIED Status: Resolved (2) Acute kidney failure Status: Resolved (3) Acute metabolic encephalopathy Code(s): G93.41 - METABOLIC ENCEPHALOPATHY Status: Resolved (4) Demand ischemia of myocardium Code(s): I24.8 - OTHER FORMS OF ACUTE ISCHEMIC HEART DISEASE Status: Acute (5) Hypophosphatemia Code(s): E83.39 - OTHER DISORDERS OF PHOSPHORUS METABOLISM Status: Resolved (6) Hypotension Status: Resolved (7) Lactic acidosis Code(s): E87.2 - ACIDOSIS Status: Resolved (8) Sepsis with acute organ dysfunction Code(s): A41.9 - SEPSIS, UNSPECIFIED ORGANISM; R65.20 - SEVERE SEPSIS WITHOUT SEPTIC SHOCK Status: Acute (9) Subdural hematoma Code(s): I62.00 - NONTRAUMATIC SUBDURAL HEMORRHAGE, UNSPECIFIED Status: Acute (10) Hyperosmolar non-ketotic state in patient with type 2 diabetes mellitus Code(s): E11.01 - TYPE 2 DIABETES MELLITUS WITH HYPEROSMOLARITY WITH COMA Status: Acute (11) Hypomagnesemia Code(s): E83.42 - HYPOMAGNESEMIA Status: Resolved (12) Protein-calorie malnutrition, moderate Code(s): E44.0 - MODERATE PROTEIN-CALORIE MALNUTRITION Status: Chronic - Plan cont current plan of care, continue antibiotics * DC vancomycin * follow urine culture * continue zosyn * reduce IVF * repeat labs tomorrow * transfer to medical * start PT * medication reviewed as below * symptomatic treatment. Review of Systems - Review of Systems Constitutional: negative: fever, chills, sweats, weakness, malaise, other Eyes: negative: Pain, Vision Change, Conjunctivae Inflammation, Eyelid Inflammation, Redness, Other ENT: negative: Ear Pain, Ear Discharge, Nose Pain, Nose Discharge, Nose Congestion, Mouth Pain, Mouth Swelling, Throat Pain, Throat Swelling, Other Respiratory: negative: Cough, Dry, Shortness of Breath, Hemoptysis, SOB with Excertion, Pleuritic Pain, Sputum, Wheezing Cardiovascular: negative: chest pain, palpitations, orthopnea, paroxysmal nocturnal dyspnea, edema, light headedness, other Gastrointestinal: negative: Nausea, Vomiting, Abdominal Pain, Diarrhea, Constipation, Melena, Hematochezia, Other Genitourinary: negative: Dysuria, Frequency, Incontinence, Hematuria, Retention , Other Musculoskeletal: negative: Neck Pain, Shoulder Pain, Arm Pain, Back Pain, Hand Pain, Leg Pain, Foot Pain, Other Skin: negative: Rash, Lesions, Cisco, Bruising, Other - Medications/Allergies Allergies/Adverse Reactions: Allergies Allergy/AdvReac Type Severity Reaction Status Date / Time meperidine [From Demerol] Allergy Unknown Verified 10/31/17 00:31 Medications: Current Medications Cyanocobalamin (Vitamin B-12) 1,000 mcg PO DAILY [facility] Last Admin: 10/31/17 08:19 Dose: 1,000 mcg Dextrose/Water (Dextrose 50%) 25 gm SLOW IVP PRN PRN PRN Reason: Hypoglycemia Ferrous Sulfate (Feosol) 325 mg PO QAM-[facility] Last Admin: 10/31/17 08:19 Dose: 325 mg Folic Acid (Folvite) 1 mg PO DAILY [facility] Last Admin: 10/31/17 08:19 Dose: 1 mg Glucagon (Glucagon) 1 mg IM PRN PRN PRN Reason: Hypoglycemia Dextrose/Water (D5w) 1,000 mls @ 0 mls/hr IV .Q0M PRN; As Directed PRN Reason: Hypoglycemia Piperacillin Sod/Tazobactam (Sod 2.25 gm/ Sodium Chloride) 100 mls @ 200 mls/ hr IVPB Q6HR [facility] Last Admin: 10/31/17 05:55 Dose: 100 mls Sodium Chloride (1/2 Normal Saline) 1,000 mls @ 100 mls/hr IV .Q10H [facility] Last Admin: 10/31/17 08:18 Dose: Not Given Insulin Human Regular (Humulin R) 0 units SC .MODERATE SLIDING SC PRN PRN Reason: Moderate Correctional Scale Last Admin: 10/30/17 06:08 Dose: 2 unit Iron/Minerals/Multivitamins (Theragran M) 1 tab PO DAILY [facility] Last Admin: 10/31/17 08:19 Dose: 1 tab Labetalol HCl (Normodyne) 5 mg SLOW IVP Q4H PRN PRN Reason: SBP Greater Than 180 Pantoprazole Sodium (Protonix) 40 mg PO DAILY [facility] Last Admin: 10/31/17 08:19 Dose: 40 mg
[2017-10-31] MEDS: Insulin Regular 300 UNITS/3 ML VIAL SC PRN ×2 (11:09→21:41)
[2017-11-01 05:01] LABS: ALT (SGPT) 57 U/L (8-55); AST (SGOT) 36 U/L (5-34); Albumin 2.5 g/dL (3.5-5.0); Alkaline Phosphatase 138 U/L (40-150); Anion Gap 11 mmol/L (10-20); BUN (Urea Nitrogen) 12 mg/dL (9.8-20.1); Bilirubin, Total 0.5 mg/dL (0.2-1.2); Calc. Creatinine Clearance 41 mL/min (70-130); Calcium 8.5 mg/dL (7.8-10.44); Carbon Dioxide 15 mmol/L (22-29); Chloride 113 mmol/L (98-107); Estimated GFR-MDRD 70; Globulin 2.1 g/dL (2.4-3.5); Glucose 176 mg/dL (70-105); Magnesium 1.4 mg/dL (1.6-2.6); Potassium 3.6 mmol/L (3.5-5.1); Protein, Total 4.6 g/dL (6.0-8.3); Sodium 135 mmol/L (136-145)
[2017-11-01 05:04] LABS: Phosphorus 1.8 mg/dL (2.3-4.7)
[2017-11-01] MEDS: Insulin Regular 300 UNITS/3 ML VIAL SC PRN ×2 (05:26→12:25)
[2017-11-01] MEDS: Piperacillin/Tazobactam 2.25 GM in Sodium Chloride 0.9% 100 ML IVPB SCH (05:26)
[2017-11-01 06:04] LABS: Band 3 % (5-11); Hemoglobin 12.3 g/dL (12.0-16.0); Lymphocytes 17 % (21-51); MDiff Complete? YES; Mean Corpuscular HGB CONC 35.2 g/dL (32.0-36.0); Mean Corpuscular Hemoglobin 32.2 pg (27.0-31.0); Mean Corpuscular Volume 91.7 fl (81.0-99.0); Mean Platelet Volume 7.6 fL (7.4-10.4); Metamyelocyte 1 % (0-0); Monocytes 4 % (0-10); Neutrophil 73 % (42-75); PLT Morphology Comment Appears Adequate; Platelet Count 170 thou/uL (130-400); RBC Morphology Normal; Reactive Lymphocytes 2 % (0-10); Red Blood Cell (RBC) Count 3.83 mill/uL (4.20-5.40)
[2017-11-01] MEDS: Multivitamin W/ Minerals 1 TAB PO SCH (07:29)
[2017-11-01] MEDS: Ferrous Sulfate 325 MG TAB PO SCH (07:30)
[2017-11-01] MEDS ORDERED: Potassium Phosphate 15 MMOL in Sodium Chloride 0.9% 250 ML 250 ML IVPB SCH (07:30)
[2017-11-01] MEDS ORDERED: Magnesium Sulfate 3 GM in Sodium Chloride 0.9% 100 ML IVPB SCH (07:30)
[2017-11-01] MEDS: Cyanocobalamin (Vitamin B-12) 1,000 MCG TAB PO SCH (07:30)
[2017-11-01] MEDS: Folic Acid 1 MG TAB PO SCH (07:31)
[2017-11-01] MEDS: Sodium Bicarbonate Tab 325 MG TAB PO SCH ×2 (08:50→21:47)
[2017-11-01] MEDS: Saccharomyces boulardii 250 MG CAP PO SCH (08:50)
[2017-11-01] MEDS: Enoxaparin Sodium 30 MG/0.3 ML SYRINGE SC SCH (08:51)
[2017-11-01] MEDS: Insulin NPH/Reg Insulin Hm 300 UNITS/3 ML VIAL SC SCH ×2 (10:05→18:01)
--- NOTE | 2017-11-01 11:19 | PDOC.PN ---
- Subjective Encounter Start Date: 11/01/17 Encounter Start Time: 07:45 Patient seen and examined. No new complaints. No overnight events - Objective Resuscitation Status: Resuscitation Status FULL:Full Resuscitation MAR Reviewed: Yes Vital Signs & Weight: Vital Signs (12 hours) Temp Pulse Resp BP BP Pulse Ox 11/01/17 08:00 97.8 F 74 16 100 11/01/17 07:37 97.8 F 74 16 102/67 100 11/01/17 04:00 97.9 F 79 18 122/79 122/79 95 11/01/17 00:23 97.7 F 83 18 110/68 99 11/01/17 00:00 110/68 Weight Admit Weight 71 lb 10.404 oz Weight 77 lb 9.643 oz Most Recent Monitor Data Heart Rate from ECG 81 NIBP 116/73 NIBP BP-Mean 84 Respiration from ECG 18 SpO2 96 I&O: 10/31/17 11/01/17 11/02/17 06:59 06:59 06:59 Intake Total 5784 5351 Output Total 1661 1975 Balance 4123 8606 Result Diagrams: 11/01/17 04:03 11/01/17 04:03 Additional Labs: Accuchecks 11/01/17 11/01/17 10/31/17 10:05 03:16 19:46 POC Glucose 205 H 192 H 293 H 10/31/17 10/31/17 17:06 11:10 POC Glucose 225 H 233 H Phys Exam - Physical Examination Constitutional: NAD HEENT: PERRLA, moist MMs, sclera anicteric Neck: no JVD, supple Respiratory: no wheezing, no rales, no rhonchi Cardiovascular: RRR, no significant murmur, no rub Gastrointestinal: soft, non-tender, no distention, positive bowel sounds Musculoskeletal: no edema, pulses present Neurological: non-focal, normal sensation Lymphatic: no nodes Psychiatric: normal affect Skin: no rash, normal turgor Dx/Plan (1) Acute hyperglycemia Code(s): R73.9 - HYPERGLYCEMIA, UNSPECIFIED Status: Resolved (2) Acute kidney failure Status: Resolved (3) Acute metabolic encephalopathy Code(s): G93.41 - METABOLIC ENCEPHALOPATHY Status: Resolved (4) Demand ischemia of myocardium Code(s): I24.8 - OTHER FORMS OF ACUTE ISCHEMIC HEART DISEASE Status: Acute (5) Hypophosphatemia Code(s): E83.39 - OTHER DISORDERS OF PHOSPHORUS METABOLISM Status: Resolved (6) Hypotension Status: Resolved (7) Lactic acidosis Code(s): E87.2 - ACIDOSIS Status: Resolved (8) Sepsis with acute organ dysfunction Code(s): A41.9 - SEPSIS, UNSPECIFIED ORGANISM; R65.20 - SEVERE SEPSIS WITHOUT SEPTIC SHOCK Status: Acute (9) Subdural hematoma Code(s): I62.00 - NONTRAUMATIC SUBDURAL HEMORRHAGE, UNSPECIFIED Status: Acute (10) Hyperosmolar non-ketotic state in patient with type 2 diabetes mellitus Code(s): E11.01 - TYPE 2 DIABETES MELLITUS WITH HYPEROSMOLARITY WITH COMA Status: Acute (11) Hypomagnesemia Code(s): E83.42 - HYPOMAGNESEMIA Status: Resolved (12) Protein-calorie malnutrition, moderate Code(s): E44.0 - MODERATE PROTEIN-CALORIE MALNUTRITION Status: Chronic (13) UTI (urinary tract infection) Status: Acute - Plan cont current plan of care, continue antibiotics * DC zosyn and change to rocephin * add insulin 70/30 , 10 unit SC BID * rehab screen * medication reviewed as below * symptomatic treatment * add sodium bicarbonate * DC IVF * repeat labs tomorrow * C-diff is negative. Review of Systems - Review of Systems Constitutional: weakness. negative: fever, chills, sweats, malaise, other ENT: negative: Ear Pain, Ear Discharge, Nose Pain, Nose Discharge, Nose Congestion, Mouth Pain, Mouth Swelling, Throat Pain, Throat Swelling, Other Respiratory: negative: Cough, Dry, Shortness of Breath, Hemoptysis, SOB with Excertion, Pleuritic Pain, Sputum, Wheezing Cardiovascular: negative: chest pain, palpitations, orthopnea, paroxysmal nocturnal dyspnea, edema, light headedness, other Gastrointestinal: negative: Nausea, Vomiting, Abdominal Pain, Diarrhea, Constipation, Melena, Hematochezia, Other Genitourinary: negative: Dysuria, Frequency, Incontinence, Hematuria, Retention , Other Musculoskeletal: negative: Neck Pain, Shoulder Pain, Arm Pain, Back Pain, Hand Pain, Leg Pain, Foot Pain, Other Skin: negative: Rash, Lesions, Cisco, Bruising, Other - Medications/Allergies Allergies/Adverse Reactions: Allergies Allergy/AdvReac Type Severity Reaction Status Date / Time meperidine [From Demerol] Allergy Unknown Verified 10/31/17 00:31 Medications: Current Medications Albuterol/Ipratropium (Duoneb) 3 ml NEB Q4H PRN PRN Reason: SOB &/or Wheezing Aspirin (Aspirin Chewable) 81 mg PO DAILY [facility] Last Admin: 11/01/17 08:50 Dose: 81 mg Cyanocobalamin (Vitamin B-12) 1,000 mcg PO DAILY [facility] Last Admin: 11/01/17 07:30 Dose: 1,000 mcg Dextrose/Water (Dextrose 50%) 25 gm SLOW IVP PRN PRN PRN Reason: Hypoglycemia Enoxaparin Sodium (Lovenox) 30 mg SC 0900 [facility] Last Admin: 11/01/17 08:51 Dose: 30 mg Ferrous Sulfate (Feosol) 325 mg PO QAM-[facility] Last Admin: 11/01/17 07:30 Dose: 325 mg Folic Acid (Folvite) 1 mg PO DAILY [facility] Last Admin: 11/01/17 07:31 Dose: 1 mg Glucagon (Glucagon) 1 mg IM PRN PRN PRN Reason: Hypoglycemia Dextrose/Water (D5w) 1,000 mls @ 0 mls/hr IV .Q0M PRN; As Directed PRN Reason: Hypoglycemia Magnesium Sulfate 3 gm/ Sodium (Chloride) 106 mls @ 100 mls/hr IVPB NOW [facility] Stop: 11/01/17 13:00 Last Admin: 11/01/17 08:49 Dose: 106 mls Potassium Phosphate 15 mmol/ (Sodium Chloride) 255 mls @ 62.5 mls/hr IVPB NOW [facility] Stop: 11/01/17 13:00 Last Admin: 11/01/17 08:49 Dose: 255 mls Ceftriaxone Sodium 1 gm/ (Sodium Chloride) 100 mls @ 200 mls/hr IVPB Q24HR [facility] Insulin Human Isoph/Insulin Regular (Humulin 70/30) 10 units SC BID-[facility] Last Admin: 11/01/17 10:05 Dose: 10 unit Insulin Human Regular (Humulin R) 0 units SC .MODERATE SLIDING SC PRN PRN Reason: Moderate Correctional Scale Last Admin: 11/01/17 05:26 Dose: 2 unit Iron/Minerals/Multivitamins (Theragran M) 1 tab PO DAILY [facility] Last Admin: 11/01/17 07:29 Dose: 1 tab Labetalol HCl (Normodyne) 5 mg SLOW IVP Q4H PRN PRN Reason: SBP Greater Than 180 Pantoprazole Sodium (Protonix) 40 mg PO DAILY [facility] Last Admin: 11/01/17 07:31 Dose: 40 mg Saccharomyces Boulardii (Florastor) 250 mg PO DAILY [facility] Last Admin: 11/01/17 08:50 Dose: 250 mg Sodium Bicarbonate (Bicarbonate, Sodium) 325 mg PO BID [facility] Last Admin: 11/01/17 08:50 Dose: 325 mg
[2017-11-01] MEDS ORDERED: cefTRIAXone\\ROCEPHIN 1 GM in Sodium Chloride 0.9% 100 ML IVPB SCH (11:30)
[2017-11-01] MEDS: cefTRIAXone\\ROCEPHIN 1 GM, Syringe 0.4 ML in Sterile Water 9.6 ML SLOW IVP SCH (12:25)
--- NOTE | 2017-11-01 13:27 | PRG ---
DATE OF SERVICE: 11/01/2017 SUBJECTIVE: Mr. Johnson is doing well. She has no complaints. She is oriented x3. Lungs are clear. Heart, regular rhythm. Abdomen is soft. OBJECTIVE: VITAL SIGNS: Unremarkable. Blood pressure 106/69, respiratory rate 16, oximetry is 99 on 2 liters. She is afebrile. LUNGS: Clear. HEART: Regular rhythm. ABDOMEN: Soft. IMPRESSION: 1. Status post nonketotic hyperosmolar coma. 2. History of medical noncompliance. 3. Hyperchloremic acidosis secondary to volume resuscitation. I suppose she could have a renal tubu lar acidosis as well. Mixed in with this. 4. Cachexia. PLAN: Continue supportive care. She does not have a physician, will clearly need to be evaluated in the near future by her primary care physician to follow her diabetes closely as well as her electrol yte abnormalities.
--- NOTE | 2017-11-01 14:40 | PDOC.CTH ---
Cardiology Progress Note - Subjective The pt seen and examined. No overnight events. No cardiac complaints. She has walked with PTs with mild exertion. - Objective Vital Signs Temp Pulse Resp BP BP Pulse Ox 11/01/17 11:22 97.9 F 79 16 106/69 99 11/01/17 08:00 97.8 F 74 16 100 11/01/17 07:37 97.8 F 74 16 102/67 100 11/01/17 04:00 97.9 F 79 18 122/79 122/79 95 Admit Weight 71 lb 10.404 oz Weight 77 lb 9.643 oz 10/31/17 11/01/17 11/02/17 06:59 06:59 06:59 Intake Total 5784 5351 Output Total 1661 1975 Balance 4123 3376 - Physical Examination General/Neuro: alert & oriented x3 Neck: no JVD present Lungs: other: (diminished at bases) Heart: RRR Abdomen: soft Extremities: other: (No edema) - Labs Result Diagrams: 11/01/17 04:03 11/01/17 04:03 Troponin/CKMB CK-MB (CK-2) 4.1 ng/mL (0-6.6) 10/29/17 03:25 Troponin I 0.913 ng/mL (< 0.028) H* 10/29/17 12:08 - Assessment/Plan 1. Elevated Trop possible 2ndary to DKA - No cardiac complaints at this time. On ASA and Lovenox. Stress test tomorrow. 2. Acute metabolic encephalopathy - improved 3. DKA - managed by PCP 4. HTN - stable; may start JESI and BBlocker when her VS is stable 5. COPD - stable with 2LNC 6. Current smoker - Smoking cessation education given to the pt. MAR reviewed * Echo on 10/29/17 showed EF 35-40%, mild enlarged right ventricle, trace MR and TR. * Stress test tomorrow. Review of Systems - Review of Systems Constitutional: reports: no symptoms reported EENTM: reports: no symptoms reported Respiratory: reports: no symptoms reported Cardiac (ROS): reports: no symptoms reported ABD/GI: reports: no symptoms reported : reports: no symptoms reported Musculoskeletal: reports: no symptoms reported
[2017-11-02 05:57] LABS: #Eosinphils 0.1 thou/uL (0.0-0.7); #Lymphocytes 1.6 thou/uL (1.20-3.40); #Neutrophils 12.3 thou/uL (1.40-6.50); %Basophils 0.1 % (0.0-1.0); %Eosinophils 0.4 % (0.0-10.0); %Lymphocytes 10.8 % (21.0-51.0); %Monocytes 6.8 % (0.0-10.0); %Neutrophils 81.9 % (42.0-75.0); Hemoglobin 10.9 g/dL (12.0-16.0); Mean Corpuscular HGB CONC 34.1 g/dL (32.0-36.0); Mean Corpuscular Hemoglobin 31.1 pg (27.0-31.0); Mean Corpuscular Volume 91.3 fl (81.0-99.0); Mean Platelet Volume 7.5 fL (7.4-10.4); Platelet Count 161 thou/uL (130-400); RBC Distribution Width 12.2 % (11.5-14.5); Red Blood Cell (RBC) Count 3.49 mill/uL (4.20-5.40); White Blood Cell (WBC) Count 15.1 thou/uL (4.8-10.8)
[2017-11-02 06:02] LABS: Anion Gap 10 mmol/L (10-20); BUN (Urea Nitrogen) 6 mg/dL (9.8-20.1); Calc. Creatinine Clearance 45 mL/min (70-130); Calcium 7.9 mg/dL (7.8-10.44); Carbon Dioxide 18 mmol/L (22-29); Chloride 111 mmol/L (98-107); Estimated GFR-MDRD 79; Glucose 225 mg/dL (70-105); Potassium 3.6 mmol/L (3.5-5.1); Sodium 135 mmol/L (136-145)
[2017-11-02] MEDS ORDERED: Nystatin Powder 15 GM BOT TOP PRN (08:09)
--- NOTE | 2017-11-02 08:13 | PDOC.CTH ---
Cardiology Progress Note - Subjective The pt seen and examined. No overnight events. No cardiac complaints. Waiting for stress test. I&O cath due to urine residue > 750ml this AM. Per the pt, she had UTI for 2 wks prior to this admission. - Objective Vital Signs Temp Pulse Resp BP BP Pulse Ox 11/02/17 07:33 97.7 F 79 18 99/63 100 11/02/17 04:34 98.2 F 81 20 109/70 99 11/02/17 04:00 109/70 11/01/17 23:52 98.9 F 92 18 100/63 98 11/01/17 23:38 100/63 Admit Weight 71 lb 10.404 oz Weight 77 lb 9.643 oz 11/01/17 11/02/17 11/03/17 06:59 06:59 06:59 Intake Total 5351 250 Output Total 1975 Balance 3376 250 - Physical Examination General/Neuro: alert & oriented x3 Neck: no JVD present Lungs: other: (diminished at bases) Heart: RRR Abdomen: soft Extremities: other: (no edema) - Labs Result Diagrams: 11/02/17 05:13 11/02/17 05:13 Troponin/CKMB CK-MB (CK-2) 4.1 ng/mL (0-6.6) 10/29/17 03:25 Troponin I 0.913 ng/mL (< 0.028) H* 10/29/17 12:08 - Assessment/Plan 1. Elevated Trop possible 2ndary to DKA - No cardiac complaints at this time. On ASA and Lovenox. Stress test today. 2. Acute metabolic encephalopathy - improved 3. DKA - managed by PCP 4. HTN - stable; may start JESI and BBlocker when her VS is stable 5. COPD - stable with 1.5LNC 6. Current smoker - Smoking cessation education given to the pt. 7. Yeast infection 2ndary to incontinent urine - Nystatin powder PRN; instructed not to wear diaper awhile. MAR reviewed * Echo on 10/29/17 showed EF 35-40%, mild enlarged right ventricle, trace MR and TR. * Stress test today. <Addendum > * Today's stress test showed normal without any ischemias. The pt is stable to d/c home. The pt must f/u with her PCP for DM management. Review of Systems - Review of Systems Constitutional: reports: no symptoms reported EENTM: reports: no symptoms reported Respiratory: reports: no symptoms reported Cardiac (ROS): reports: no symptoms reported ABD/GI: reports: no symptoms reported : reports: no symptoms reported
[2017-11-02] MEDS: Insulin NPH/Reg Insulin Hm 300 UNITS/3 ML VIAL SC SCH ×2 (08:29→16:28)
[2017-11-02] MEDS: Cyanocobalamin (Vitamin B-12) 1,000 MCG TAB PO SCH (08:29)
[2017-11-02] MEDS: Folic Acid 1 MG TAB PO SCH (08:29)
[2017-11-02] MEDS: Ferrous Sulfate 325 MG TAB PO SCH (08:29)
[2017-11-02] MEDS: Enoxaparin Sodium 30 MG/0.3 ML SYRINGE SC SCH (08:29)
[2017-11-02] MEDS: Saccharomyces boulardii 250 MG CAP PO SCH (08:30)
[2017-11-02] MEDS: Multivitamin W/ Minerals 1 TAB PO SCH (08:30)
[2017-11-02] MEDS: Sodium Bicarbonate Tab 325 MG TAB PO SCH ×2 (08:31→20:09)
--- NOTE | 2017-11-02 08:52 | PDOC.PN ---
- Subjective Encounter Start Date: 11/02/17 Encounter Start Time: 07:40 this morning she is NPO for stress test, she has urinary retention, no fever, wbc is improving Patient seen and examined. No overnight events - Objective Resuscitation Status: Resuscitation Status FULL:Full Resuscitation MAR Reviewed: Yes Vital Signs & Weight: Vital Signs (12 hours) Temp Pulse Resp BP BP Pulse Ox 11/02/17 07:33 97.7 F 79 18 99/63 100 11/02/17 04:34 98.2 F 81 20 109/70 99 11/02/17 04:00 109/70 11/01/17 23:52 98.9 F 92 18 100/63 98 11/01/17 23:38 100/63 Weight Admit Weight 71 lb 10.404 oz Weight 77 lb 9.643 oz Most Recent Monitor Data Heart Rate from ECG 81 NIBP 116/73 NIBP BP-Mean 84 Respiration from ECG 18 SpO2 96 I&O: 11/01/17 11/02/17 11/03/17 06:59 06:59 06:59 Intake Total 5351 250 Output Total 1975 Balance 3376 250 Result Diagrams: 11/02/17 05:13 11/02/17 05:13 Additional Labs: Accuchecks 11/02/17 11/01/17 11/01/17 03:39 19:20 16:25 POC Glucose 67 L 160 H 131 H 11/01/17 11/01/17 11:19 10:05 POC Glucose 212 H 205 H Phys Exam - Physical Examination Constitutional: NAD HEENT: PERRLA, moist MMs, sclera anicteric Neck: no JVD, supple Respiratory: no wheezing, no rales, no rhonchi Cardiovascular: RRR, no significant murmur, no rub Gastrointestinal: soft, no distention, positive bowel sounds distended bladder Musculoskeletal: no edema, pulses present Neurological: non-focal, normal sensation, moves all 4 limbs Lymphatic: no nodes Psychiatric: normal affect, A&O x 3 Skin: no rash, normal turgor Dx/Plan (1) Acute hyperglycemia Code(s): R73.9 - HYPERGLYCEMIA, UNSPECIFIED Status: Resolved (2) Acute kidney failure Status: Resolved (3) Acute metabolic encephalopathy Code(s): G93.41 - METABOLIC ENCEPHALOPATHY Status: Resolved (4) Demand ischemia of myocardium Code(s): I24.8 - OTHER FORMS OF ACUTE ISCHEMIC HEART DISEASE Status: Acute (5) Hypophosphatemia Code(s): E83.39 - OTHER DISORDERS OF PHOSPHORUS METABOLISM Status: Resolved (6) Hypotension Status: Resolved (7) Lactic acidosis Code(s): E87.2 - ACIDOSIS Status: Resolved (8) Sepsis with acute organ dysfunction Code(s): A41.9 - SEPSIS, UNSPECIFIED ORGANISM; R65.20 - SEVERE SEPSIS WITHOUT SEPTIC SHOCK Status: Acute (9) Subdural hematoma Code(s): I62.00 - NONTRAUMATIC SUBDURAL HEMORRHAGE, UNSPECIFIED Status: Acute (10) Hyperosmolar non-ketotic state in patient with type 2 diabetes mellitus Code(s): E11.01 - TYPE 2 DIABETES MELLITUS WITH HYPEROSMOLARITY WITH COMA Status: Acute (11) Hypomagnesemia Code(s): E83.42 - HYPOMAGNESEMIA Status: Resolved (12) Protein-calorie malnutrition, moderate Code(s): E44.0 - MODERATE PROTEIN-CALORIE MALNUTRITION Status: Chronic (13) UTI (urinary tract infection) Status: Acute (14) Acute urinary retention Code(s): R33.8 - OTHER RETENTION OF URINE Status: Acute (15) Systolic dysfunction without heart failure Code(s): I51.9 - HEART DISEASE, UNSPECIFIED Status: Acute (16) Noncompliance with diabetes treatment Code(s): Z91.19 - PATIENT'S NONCOMPLIANCE W OTH MEDICAL TREATMENT AND REGIMEN Status: Chronic (17) Tobacco abuse Code(s): Z72.0 - TOBACCO USE Status: Chronic - Plan cont current plan of care, continue antibiotics, licensed clinical social worker * today stress test for ischemia workup for systolic dysfunction * In and out catheter one time and send UA and urine culture * continue rocephin * medication reviewed as below * symptomatic treatment * ambulate as tolerated * overall doing well. Review of Systems - Review of Systems Constitutional: negative: fever, chills, sweats, weakness, malaise, other Eyes: negative: Pain, Vision Change, Conjunctivae Inflammation, Eyelid Inflammation, Redness, Other ENT: negative: Ear Pain, Ear Discharge, Nose Pain, Nose Discharge, Nose Congestion, Mouth Pain, Mouth Swelling, Throat Pain, Throat Swelling, Other Respiratory: negative: Cough, Dry, Shortness of Breath, Hemoptysis, SOB with Excertion, Pleuritic Pain, Sputum, Wheezing Cardiovascular: negative: chest pain, palpitations, orthopnea, paroxysmal nocturnal dyspnea, edema, light headedness, other Gastrointestinal: negative: Nausea, Vomiting, Abdominal Pain, Diarrhea, Constipation, Melena, Hematochezia, Other Genitourinary: Retention. negative: Dysuria, Frequency, Incontinence, Hematuria , Other Musculoskeletal: negative: Neck Pain, Shoulder Pain, Arm Pain, Back Pain, Hand Pain, Leg Pain, Foot Pain, Other Skin: negative: Rash, Lesions, Cisco, Bruising, Other - Medications/Allergies Allergies/Adverse Reactions: Allergies Allergy/AdvReac Type Severity Reaction Status Date / Time meperidine [From Demerol] Allergy Unknown Verified 10/31/17 00:31 Medications: Current Medications Albuterol/Ipratropium (Duoneb) 3 ml NEB Q4H PRN PRN Reason: SOB &/or Wheezing Aspirin (Aspirin Chewable) 81 mg PO DAILY [facility] Last Admin: 11/02/17 08:29 Dose: Not Given Cyanocobalamin (Vitamin B-12) 1,000 mcg PO DAILY [facility] Last Admin: 11/02/17 08:29 Dose: Not Given Dextrose/Water (Dextrose 50%) 25 gm SLOW IVP PRN PRN PRN Reason: Hypoglycemia Last Admin: 11/02/17 04:49 Dose: 25 gm Enoxaparin Sodium (Lovenox) 30 mg SC 0900 [facility] Last Admin: 11/02/17 08:29 Dose: Not Given Ferrous Sulfate (Feosol) 325 mg PO QAM-[facility] Last Admin: 11/02/17 08:29 Dose: Not Given Folic Acid (Folvite) 1 mg PO DAILY [facility] Last Admin: 11/02/17 08:29 Dose: Not Given Glucagon (Glucagon) 1 mg IM PRN PRN PRN Reason: Hypoglycemia Dextrose/Water (D5w) 1,000 mls @ 0 mls/hr IV .Q0M PRN; As Directed PRN Reason: Hypoglycemia Ceftriaxone Sodium 1 gm/ (Syringe 0.4 ml/ Sterile Water) 10 mls @ 120 mls/hr SLOW IVP 1200 [facility] Last Admin: 11/01/17 12:25 Dose: 10 mls Insulin Human Isoph/Insulin Regular (Humulin 70/30) 10 units SC BID-[facility] Last Admin: 11/02/17 08:29 Dose: Not Given Insulin Human Regular (Humulin R) 0 units SC .MODERATE SLIDING SC PRN PRN Reason: Moderate Correctional Scale Last Admin: 11/01/17 12:25 Dose: 4 unit Iron/Minerals/Multivitamins (Theragran M) 1 tab PO DAILY [facility] Last Admin: 11/02/17 08:30 Dose: Not Given Labetalol HCl (Normodyne) 5 mg SLOW IVP Q4H PRN PRN Reason: SBP Greater Than 180 Nystatin (Mycostatin Powder) 1 gm TOP BIDPRN PRN PRN Reason: Topical Irritations Pantoprazole Sodium (Protonix) 40 mg PO DAILY [facility] Last Admin: 11/02/17 08:30 Dose: Not Given Saccharomyces Boulardii (Florastor) 250 mg PO DAILY [facility] Last Admin: 11/02/17 08:30 Dose: Not Given Sodium Bicarbonate (Bicarbonate, Sodium) 325 mg PO BID [facility] Last Admin: 11/02/17 08:31 Dose: Not Given
[2017-11-02] MEDS ORDERED: Regadenoson 0.4 MG/5 ML SYRINGE ONE (09:32)
[2017-11-02] MEDS: cefTRIAXone\\ROCEPHIN 1 GM, Syringe 0.4 ML in Sterile Water 9.6 ML SLOW IVP SCH (13:36)
--- NOTE | 2017-11-02 14:26 | NM ---
CARDIAC SPECT: HISTORY: A 57-year-old female with an elevated troponin. Hypertension. Diabetes. Smoker. COPD. TECHNIQUE: A myocardial perfusion scan was performed using the single isotope one-day protocol with technetium 9 9m sestamibi, and 10 millicuries was injected intravenously for the rest exam, followed by 31 millicu paulo for the stress study. Pharmacologic stress with Lexiscan was monitored and interpreted by Dr. Reyna holley. FINDINGS: Homogeneous tracer distribution is seen in the myocardial segments on stress and rest images without fixed or reversible defects. GATED SPECT LVEF: 85% WALL MOTION EXAM: Normal. IMPRESSION: Normal myocardial perfusion scan. POS: [facility]
--- NOTE | 2017-11-02 15:15 | PRG ---
DATE OF SERVICE: 11/02/2017 SUBJECTIVE: Ms. Johnson has no new problems reported. She is getting a stress test today. She is he modynamically unstable. OBJECTIVE: VITAL SIGNS: She is afebrile, heart rate is 79, respiratory rate is 18, and oximetry is 100% on 2 li ters. LUNGS: Unchanged. HEART: Unchanged. ABDOMEN: Unchanged. LABORATORY DATA: Sodium 135, potassium 3.6, chloride 111, bicarbonate 18, BUN 6, creatinine 0.75. White count is 15.1, hemoglobin 10.9, platelets 151. IMPRESSION: Status post hyperosmolar coma secondary to medical noncompliance, severe dehydration. She really does not need all these vitamin supplements. We will not add anything to her management a t this time. She needs to be encouraged to eat and stay hydrated. In my opinion, her diabetes could be managed with oral agents and she is more likely to be compliant with close outpatient followup wi th metformin or another oral agent and she will be with insulin. I doubt she will comply with glucos e management and Accu-Cheks. Her [id number] has 3 children and about to have a forth, so she wi ll have her hands full with Ms. Cerrato moved in with her son. She has a hyperchloremic acidosis, which could be simply an RTA or could be related to her volume res uscitation when she came in. I suspect this will eventually re-equilibrate, but again this needs to be followed closely as an outpatient. She is stable for discharge in my opinion once her stress test is cleared as long as she has a physician that can follow her within a week.
[2017-11-02] MEDS: Insulin Regular 300 UNITS/3 ML VIAL SC PRN ×2 (16:29→21:26)
[2017-11-02] MEDS: Acetaminophen 500 MG TAB PO PRN (20:15)
[2017-11-02 21:20] LABS: Bilirubin Negative (Negative); Blood, Urine Negative (Negative); Clarity CLOUDY (Clear); Glucose, Urine (Dipstick) 500 mg/dL (Negative); Leukocyte Trace (Negative); Nitrite Negative (Negative); Protein, Urine (Dipstick) Trace mg/dL (Neg-Trace); Specific Gravity, Urine 1.014 (1.002-1.036); Urobilinogen 0.2 mg/dL (0.2-1.0)
[2017-11-02 21:24] LABS: Bacteria/HPF None Seen HPF (None Seen); Hyaline Casts/LPF 4-6 HYALINE CAST LPF (0-3 Hyaline); Pathc Cast-AUWi Flag 1.01 (0-2.49); Squamous Epithelial 0-3 HPF (0-3); WBC/HPF 21-50 HPF (0-3); Yeast-AUWi Flag 5428.5 (0-25.0)
[2017-11-02 21:33] LABS: RBC/HPF 0-3 HPF (0-3); Renal Epithelial 0-3 HPF (0-3); Yeast-All Forms 3+ HPF (None Seen)
[2017-11-03 08:02] LABS: #Eosinphils 0.1 thou/uL (0.0-0.7); #Lymphocytes 1.5 thou/uL (1.20-3.40); #Neutrophils 9.8 thou/uL (1.40-6.50); %Basophils 0.1 % (0.0-1.0); %Eosinophils 0.8 % (0.0-10.0); %Lymphocytes 12.4 % (21.0-51.0); %Monocytes 8.3 % (0.0-10.0); %Neutrophils 78.5 % (42.0-75.0); Hemoglobin 11.2 g/dL (12.0-16.0); Mean Corpuscular HGB CONC 34.3 g/dL (32.0-36.0); Mean Corpuscular Hemoglobin 31.8 pg (27.0-31.0); Mean Corpuscular Volume 92.6 fl (81.0-99.0); Mean Platelet Volume 7.8 fL (7.4-10.4); Platelet Count 185 thou/uL (130-400); RBC Distribution Width 12.3 % (11.5-14.5); Red Blood Cell (RBC) Count 3.51 mill/uL (4.20-5.40); White Blood Cell (WBC) Count 12.4 thou/uL (4.8-10.8)
[2017-11-03] MEDS: Ferrous Sulfate 325 MG TAB PO SCH (08:09)
[2017-11-03] MEDS: Saccharomyces boulardii 250 MG CAP PO SCH (08:10)
[2017-11-03] MEDS: Sodium Bicarbonate Tab 325 MG TAB PO SCH ×2 (08:10→20:07)
[2017-11-03] MEDS: Enoxaparin Sodium 30 MG/0.3 ML SYRINGE SC SCH (08:11)
[2017-11-03] MEDS: Insulin NPH/Reg Insulin Hm 300 UNITS/3 ML VIAL SC SCH ×2 (08:18→20:35)
[2017-11-03 08:23] LABS: Anion Gap 11 mmol/L (10-20); BUN (Urea Nitrogen) 7 mg/dL (9.8-20.1); Calc. Creatinine Clearance 50 mL/min (70-130); Calcium 8.4 mg/dL (7.8-10.44); Carbon Dioxide 20 mmol/L (22-29); Chloride 109 mmol/L (98-107); Estimated GFR-MDRD 89; Glucose 149 mg/dL (70-105); Potassium 3.7 mmol/L (3.5-5.1); Sodium 136 mmol/L (136-145)
[2017-11-03] MEDS: Fluconazole In NaCl,Iso-Osm 200 MG in Premix Bag 1 BAG IVPB SCH (10:33)
--- NOTE | 2017-11-03 10:53 | PDOC.PN ---
- Subjective Encounter Start Date: 11/03/17 Encounter Start Time: 09:10 last night pt had high grade fever, this morning she is doing fine Patient seen and examined. No new complaints. No overnight events - Objective Resuscitation Status: Resuscitation Status FULL:Full Resuscitation MAR Reviewed: Yes Vital Signs & Weight: Vital Signs (12 hours) Temp Pulse Resp BP Pulse Ox 11/03/17 08:00 98.8 F 67 18 99 11/03/17 07:07 98.8 F 67 18 98/64 92 L 11/03/17 04:00 98.4 F 67 18 93/61 99 11/03/17 00:00 98.6 F 76 18 93/56 L Weight Admit Weight 71 lb 10.404 oz Weight 77 lb 9.643 oz Most Recent Monitor Data Heart Rate from ECG 81 NIBP 116/73 NIBP BP-Mean 84 Respiration from ECG 18 SpO2 96 I&O: 11/02/17 11/03/17 11/04/17 06:59 06:59 06:59 Intake Total 250 Balance 250 Result Diagrams: 11/03/17 07:25 11/03/17 07:25 Additional Labs: Accuchecks 11/03/17 11/02/17 11/02/17 08:17 21:15 16:19 POC Glucose 136 H 200 H 299 H Phys Exam - Physical Examination Constitutional: NAD HEENT: PERRLA, moist MMs, sclera anicteric Neck: no JVD, supple Respiratory: no wheezing, no rales, no rhonchi Cardiovascular: RRR, no significant murmur, no rub Gastrointestinal: soft, non-tender, no distention, positive bowel sounds Musculoskeletal: no edema, pulses present Neurological: non-focal, normal sensation, moves all 4 limbs Lymphatic: no nodes Psychiatric: normal affect Skin: no rash, normal turgor Dx/Plan (1) Acute hyperglycemia Code(s): R73.9 - HYPERGLYCEMIA, UNSPECIFIED Status: Resolved (2) Acute kidney failure Status: Resolved (3) Acute metabolic encephalopathy Code(s): G93.41 - METABOLIC ENCEPHALOPATHY Status: Resolved (4) Demand ischemia of myocardium Code(s): I24.8 - OTHER FORMS OF ACUTE ISCHEMIC HEART DISEASE Status: Acute (5) Hypophosphatemia Code(s): E83.39 - OTHER DISORDERS OF PHOSPHORUS METABOLISM Status: Resolved (6) Hypotension Status: Resolved (7) Lactic acidosis Code(s): E87.2 - ACIDOSIS Status: Resolved (8) Sepsis with acute organ dysfunction Code(s): A41.9 - SEPSIS, UNSPECIFIED ORGANISM; R65.20 - SEVERE SEPSIS WITHOUT SEPTIC SHOCK Status: Acute (9) Subdural hematoma Code(s): I62.00 - NONTRAUMATIC SUBDURAL HEMORRHAGE, UNSPECIFIED Status: Acute (10) Hyperosmolar non-ketotic state in patient with type 2 diabetes mellitus Code(s): E11.01 - TYPE 2 DIABETES MELLITUS WITH HYPEROSMOLARITY WITH COMA Status: Acute (11) Hypomagnesemia Code(s): E83.42 - HYPOMAGNESEMIA Status: Resolved (12) Protein-calorie malnutrition, moderate Code(s): E44.0 - MODERATE PROTEIN-CALORIE MALNUTRITION Status: Chronic (13) UTI (urinary tract infection) Status: Acute (14) Acute urinary retention Code(s): R33.8 - OTHER RETENTION OF URINE Status: Acute (15) Systolic dysfunction without heart failure Code(s): I51.9 - HEART DISEASE, UNSPECIFIED Status: Acute (16) Noncompliance with diabetes treatment Code(s): Z91.19 - PATIENT'S NONCOMPLIANCE W OTH MEDICAL TREATMENT AND REGIMEN Status: Chronic (17) Tobacco abuse Code(s): Z72.0 - TOBACCO USE Status: Chronic - Plan cont current plan of care, continue antibiotics * continue rocephin for UTI * wbc is improving * repeat UA shows yeast, will add diflucan * follow repeat urine culture * she will need home health * i tried to spoke with family but unable to reach * will monitor for another 24 hours, for any recurrent fever * high risk for readmission * pt has low BP, so unable to give BB or ACEI or ARB * medication reviewed as below * symptomatic treatment. * monitor urinary retension Review of Systems - Review of Systems Constitutional: fever, weakness. negative: chills, sweats, malaise, other Eyes: negative: Pain, Vision Change, Conjunctivae Inflammation, Eyelid Inflammation, Redness, Other ENT: negative: Ear Pain, Ear Discharge, Nose Pain, Nose Discharge, Nose Congestion, Mouth Pain, Mouth Swelling, Throat Pain, Throat Swelling, Other Respiratory: negative: Cough, Dry, Shortness of Breath, Hemoptysis, SOB with Excertion, Pleuritic Pain, Sputum, Wheezing Cardiovascular: negative: chest pain, palpitations, orthopnea, paroxysmal nocturnal dyspnea, edema, light headedness, other Gastrointestinal: negative: Nausea, Vomiting, Abdominal Pain, Diarrhea, Constipation, Melena, Hematochezia, Other Genitourinary: Retention. negative: Dysuria, Frequency, Incontinence, Hematuria , Other Musculoskeletal: negative: Neck Pain, Shoulder Pain, Arm Pain, Back Pain, Hand Pain, Leg Pain, Foot Pain, Other Skin: negative: Rash, Lesions, Cisco, Bruising, Other - Medications/Allergies Allergies/Adverse Reactions: Allergies Allergy/AdvReac Type Severity Reaction Status Date / Time meperidine [From Demerol] Allergy Unknown Verified 10/31/17 00:31 Medications: Current Medications Acetaminophen (Tylenol) 1,000 mg PO Q6H PRN PRN Reason: Headache/Fever or Pain Last Admin: 11/02/17 20:15 Dose: 1,000 mg Aspirin (Aspirin Chewable) 81 mg PO DAILY [facility] Last Admin: 11/03/17 08:09 Dose: 81 mg Dextrose/Water (Dextrose 50%) 25 gm SLOW IVP PRN PRN PRN Reason: Hypoglycemia Last Admin: 11/02/17 04:49 Dose: 25 gm Enoxaparin Sodium (Lovenox) 30 mg SC 0900 [facility] Last Admin: 11/03/17 08:11 Dose: 30 mg Ferrous Sulfate (Feosol) 325 mg PO QAM-[facility] Last Admin: 11/03/17 08:09 Dose: 325 mg Glucagon (Glucagon) 1 mg IM PRN PRN PRN Reason: Hypoglycemia Dextrose/Water (D5w) 1,000 mls @ 0 mls/hr IV .Q0M PRN; As Directed PRN Reason: Hypoglycemia Fluconazole/Sodium Chloride (200 mg/ Device) 100 mls @ 100 mls/hr IVPB DAILY [facility] Last Admin: 11/03/17 10:33 Dose: 100 mls Insulin Human Isoph/Insulin Regular (Humulin 70/30) 15 units SC QAM [facility] Last Admin: 11/03/17 08:18 Dose: 15 unit Insulin Human Isoph/Insulin Regular (Humulin 70/30) 10 units SC QPM [facility] Insulin Human Regular (Humulin R) 0 units SC .MODERATE SLIDING SC PRN PRN Reason: Moderate Correctional Scale Last Admin: 11/02/17 21:26 Dose: 2 unit Labetalol HCl (Normodyne) 5 mg SLOW IVP Q4H PRN PRN Reason: SBP Greater Than 180 Nystatin (Mycostatin Powder) 1 gm TOP BIDPRN PRN PRN Reason: Topical Irritations Pantoprazole Sodium (Protonix) 40 mg PO DAILY [facility] Last Admin: 11/03/17 08:10 Dose: 40 mg Saccharomyces Boulardii (Florastor) 250 mg PO DAILY [facility] Last Admin: 11/03/17 08:10 Dose: 250 mg Sodium Bicarbonate (Bicarbonate, Sodium) 325 mg PO BID [facility] Last Admin: 11/03/17 08:10 Dose: 325 mg
--- NOTE | 2017-11-03 12:53 | PRG ---
DATE OF SERVICE: 11/03/2017 Ms. Johnson has no complaints. PHYSICAL EXAMINATION: VITAL SIGNS: She is afebrile, heart rate 67, respiratory rate is 18, oximetry is 99 on 1 liter. The oxygen can be discontinued in my opinion. LUNGS: Her lungs are clear. HEART: Regular rhythm. ABDOMEN: Soft. LABORATORY DATA: White count 12.4, hemoglobin 11.2, platelets 185. Sodium 136, potassium 3.7, chloride 109, bicarbonate 20, BUN 7, creatinine 0.68. IMPRESSION: Status post hyperosmolar coma. The caseworkers are trying to find her a primary care ph ysician to assist in her management of her diabetes
[2017-11-03] MEDS: Acetaminophen 500 MG TAB PO PRN (16:55)
[2017-11-03] MEDS: Insulin Regular 300 UNITS/3 ML VIAL SC PRN (18:14)
[2017-11-04] MEDS: Enoxaparin Sodium 30 MG/0.3 ML SYRINGE SC SCH (08:53)
[2017-11-04] MEDS: Sodium Bicarbonate Tab 325 MG TAB PO SCH ×2 (08:53→20:23)
[2017-11-04] MEDS: Saccharomyces boulardii 250 MG CAP PO SCH (08:53)
[2017-11-04] MEDS: Ferrous Sulfate 325 MG TAB PO SCH (08:53)
[2017-11-04] MEDS: Insulin NPH/Reg Insulin Hm 300 UNITS/3 ML VIAL SC SCH ×2 (08:54→20:24)
[2017-11-04] MEDS: Fluconazole In NaCl,Iso-Osm 200 MG in Premix Bag 1 BAG IVPB SCH (09:06)
--- NOTE | 2017-11-04 10:04 | PRG ---
DATE OF SERVICE: 11/04/2017 Bere Johnson apparently had urinary retention yesterday. She has a Olson back in. PHYSICAL EXAMINATION: VITAL SIGNS: She is afebrile, heart rate 88, respiratory 18, oximetry 95 on room air. She had her n jay cannula on with her oxygen turned off so I asked her to remove her nasal cannula. Blood pressur e 103/66. LUNGS: Clear. HEART: Regular rhythm. ABDOMEN: Soft. Glucoses have been between 136 and 224 yesterday. IMPRESSION: 1. Diabetes. 2. Status post hyperosmolar coma. 3. Urinary retention in a female. I would look for a medication induced urinary retention. It woul d be unusual for her diabetes to do this. She was only diagnosed 4 years ago with diabetes, but I dumont ppose it is possible she had diabetes for quite some time and because of her lack routine healthcare was not diagnosed. Urology should be consulted in my opinion to help sort through this. It is unlik maya that she has some type of bladder outlet obstruction since she is female.
[2017-11-04] MEDS: Insulin Regular 300 UNITS/3 ML VIAL SC PRN ×2 (12:11→17:36)
--- NOTE | 2017-11-04 14:33 | PDOC.PN ---
- Subjective Encounter Start Date: 11/04/17 Encounter Start Time: 11:00 -: old records requested/rev Pt seen and examined, chart reviewe din its entirety, this is my first visit with this patient. Pt awake, alert, and oriented x 3. no F/c, no N/V/d/c. weak, but improving. hiram fluc, started on 11/02 for yeast in urine, NOT present on admit. Since my visit, and before this note, culture growing yeast species. 10 point rOS performed and neg for all systems except as per HPI - Objective Resuscitation Status: Resuscitation Status FULL:Full Resuscitation MAR Reviewed: Yes Vital Signs & Weight: Vital Signs (12 hours) Temp Pulse Resp BP Pulse Ox 11/04/17 12:00 99.3 F 82 16 113/72 97 11/04/17 09:12 99.0 F 78 18 95 11/04/17 07:34 99.0 F 78 18 103/66 95 11/04/17 04:00 99.1 F 76 18 116/73 95 Weight Admit Weight 71 lb 10.404 oz Weight 77 lb 9.643 oz Most Recent Monitor Data Heart Rate from ECG 81 NIBP 116/73 NIBP BP-Mean 84 Respiration from ECG 18 SpO2 96 I&O: 11/03/17 11/04/17 11/05/17 06:59 06:59 06:59 Intake Total 820 Output Total 1605 Balance -785 Result Diagrams: 11/03/17 07:25 11/03/17 07:25 Additional Labs: Accuchecks 11/04/17 11/04/17 11/04/17 11:45 04:22 02:29 POC Glucose 311 H 173 H 171 H 11/03/17 11/03/17 11/03/17 19:40 16:08 04:26 POC Glucose 178 H 224 H 132 H Radiology Reviewed by me: Yes EKG Reviewed by me: Yes Phys Exam - Physical Examination Constitutional: NAD HEENT: PERRLA, moist MMs, sclera anicteric, oral pharynx no lesions Neck: no nodes, no JVD, supple, full ROM Respiratory: no wheezing, no rales, no rhonchi, clear to auscultation bilateral Cardiovascular: RRR, no significant murmur, no rub Gastrointestinal: soft, non-tender, no distention, positive bowel sounds Musculoskeletal: no edema, pulses present Neurological: non-focal, normal sensation, moves all 4 limbs Lymphatic: no nodes Psychiatric: normal affect, A&O x 3 Skin: no rash, normal turgor, cap refill <2 seconds Dx/Plan (1) Acute kidney injury Code(s): N17.9 - ACUTE KIDNEY FAILURE, UNSPECIFIED Status: Resolved (2) Acute urinary retention Code(s): R33.8 - OTHER RETENTION OF URINE Status: Resolved Comment: nguyen in place (3) Demand ischemia of myocardium Code(s): I24.8 - OTHER FORMS OF ACUTE ISCHEMIC HEART DISEASE Status: Chronic (4) Hyperosmolar non-ketotic state in patient with type 2 diabetes mellitus Code(s): E11.01 - TYPE 2 DIABETES MELLITUS WITH HYPEROSMOLARITY WITH COMA Status: Chronic (5) Sepsis with acute organ dysfunction Code(s): A41.9 - SEPSIS, UNSPECIFIED ORGANISM; R65.20 - SEVERE SEPSIS WITHOUT SEPTIC SHOCK Status: Resolved (6) Subdural hematoma Code(s): I62.00 - NONTRAUMATIC SUBDURAL HEMORRHAGE, UNSPECIFIED Status: Acute (7) Systolic dysfunction without heart failure Code(s): I51.9 - HEART DISEASE, UNSPECIFIED Status: Chronic (8) UTI (urinary tract infection) Status: Acute Qualifiers: Urinary tract infection type: acute cystitis Hematuria presence: without hematuria Qualified Code(s): N30.00 - Acute cystitis without hematuria Comment: with GNR, present on admit, now with yeast, not present on admit. nguyen in. on fluc, will adjust dosing for renal function (9) Noncompliance with diabetes treatment Code(s): Z91.19 - PATIENT'S NONCOMPLIANCE W OTH MEDICAL TREATMENT AND REGIMEN Status: Chronic (10) Protein-calorie malnutrition, moderate Code(s): E44.0 - MODERATE PROTEIN-CALORIE MALNUTRITION Status: Chronic (11) Tobacco abuse Code(s): Z72.0 - TOBACCO USE Status: Chronic (12) Acute metabolic encephalopathy Code(s): G93.41 - METABOLIC ENCEPHALOPATHY Status: Resolved (13) Hypomagnesemia Code(s): E83.42 - HYPOMAGNESEMIA Status: Resolved (14) Hypophosphatemia Code(s): E83.39 - OTHER DISORDERS OF PHOSPHORUS METABOLISM Status: Resolved (15) Hypotension Status: Resolved (16) Lactic acidosis Code(s): E87.2 - ACIDOSIS Status: Resolved - Plan cont current plan of care, continue antibiotics, PT/OT, out of bed/ambulate * . pt to go home, [id number] is in nursing. antcipate d/C in 1-2 days
[2017-11-04] MEDS: Acetaminophen 500 MG TAB PO PRN (20:34)
[2017-11-05 04:41] LABS: #Eosinphils 0.2 thou/uL (0.0-0.7); #Lymphocytes 2.5 thou/uL (1.20-3.40); #Monocytes 0.9 thou/uL (0.11-0.59); #Neutrophils 6.3 thou/uL (1.40-6.50); %Basophils 0.1 % (0.0-1.0); %Eosinophils 1.7 % (0.0-10.0); %Lymphocytes 25.4 % (21.0-51.0); %Monocytes 9.2 % (0.0-10.0); %Neutrophils 63.6 % (42.0-75.0); Hemoglobin 10.4 g/dL (12.0-16.0); Mean Corpuscular HGB CONC 33.6 g/dL (32.0-36.0); Mean Corpuscular Hemoglobin 31.2 pg (27.0-31.0); Mean Corpuscular Volume 92.8 fl (81.0-99.0); Mean Platelet Volume 6.8 fL (7.4-10.4); Platelet Count 270 thou/uL (130-400); RBC Distribution Width 12.5 % (11.5-14.5); Red Blood Cell (RBC) Count 3.32 mill/uL (4.20-5.40); White Blood Cell (WBC) Count 9.9 thou/uL (4.8-10.8)
[2017-11-05 05:04] LABS: ALT (SGPT) 26 U/L (8-55); AST (SGOT) 24 U/L (5-34); Albumin 2.4 g/dL (3.5-5.0); Alkaline Phosphatase 222 U/L (40-150); Anion Gap 10 mmol/L (10-20); BUN (Urea Nitrogen) 8 mg/dL (9.8-20.1); Bilirubin, Total 0.2 mg/dL (0.2-1.2); Calc. Creatinine Clearance 46 mL/min (70-130); Calcium 8.6 mg/dL (7.8-10.44); Carbon Dioxide 25 mmol/L (22-29); Chloride 107 mmol/L (98-107); Estimated GFR-MDRD 81; Globulin 2.4 g/dL (2.4-3.5); Glucose 157 mg/dL (70-105); Magnesium 1.5 mg/dL (1.6-2.6); Protein, Total 4.8 g/dL (6.0-8.3); Sodium 138 mmol/L (136-145)
[2017-11-05] MEDS: Enoxaparin Sodium 30 MG/0.3 ML SYRINGE SC SCH (08:44)
[2017-11-05] MEDS: Saccharomyces boulardii 250 MG CAP PO SCH (08:44)
[2017-11-05] MEDS: Ferrous Sulfate 325 MG TAB PO SCH (08:44)
[2017-11-05] MEDS: Sodium Bicarbonate Tab 325 MG TAB PO SCH (08:44)
[2017-11-05] MEDS: Insulin NPH/Reg Insulin Hm 300 UNITS/3 ML VIAL SC SCH (08:45)
[2017-11-05] MEDS: Fluconazole In NaCl,Iso-Osm 200 MG in Premix Bag 1 BAG IVPB SCH (09:07)
[2017-11-05] MEDS ORDERED: Fluconazole 100 MG TAB PO SCH (09:30)
[2017-11-05] MEDS ORDERED: Magnesium 2 GM/NS 0.9% 100 ML 2 GM in Premix Bag 1 BAG IVPB SCH (09:45)
[2017-11-05] MEDS: Acetaminophen 500 MG TAB PO PRN (09:56)
[2017-11-05] MEDS: Insulin Regular 300 UNITS/3 ML VIAL SC PRN (12:01)
--- NOTE | 2017-11-05 16:53 | DIS ---
PRIMARY CARE PHYSICIAN: None. DATE OF ADMISSION: 10/28/2017 DATE OF DISCHARGE: 11/05/2017 DISCHARGE DIAGNOSES: 1. Acute kidney injury, resolved. 2. Urinary retention, resolved. 3. Demand ischemia. 4. Diabetes mellitus type 2 with hyperglycemia. 5. Hyperosmolar nonketotic state and diabetes mellitus type 2, present on admission, resolved. 6. Sepsis, severe with acute organ dysfunction present on admission, resolved. 7. Subdural hematoma, present on admission and improved. 8. Systolic heart dysfunction without mention of heart failure, chronic. 9. Urinary tract infection, acute cystitis due to gram-negative rods. 10. Urinary tract infection secondary to gram negative patricia present on admission. 11. Urinary tract infection secondary to yeast not present on admission. 12. Nonadherence to diabetic treatments. 13. Moderate protein calorie malnutrition. 14. Ongoing tobacco abuse. 15. Acute metabolic encephalopathy, resolved. 16. Hypomagnesemia, resolved. 17. Hypophosphatemia, resolved. 18. Hypotension, resolved. 19. Lactic acidosis, resolved. CONSULTATIONS: 1. Neurosurgery on 10/28/2017, Mr. Dixon Rodrigues. 2. Cardiology, on 10/29/2017, Ms. Cayla Valerio and Dr. Reginald Polo. 3. On 10/29/2017, Pulmonary Critical Care, Dr. Micah Ahuja. PROCEDURES: 1. Echocardiogram on 10/29/2017 showed an EF of 35% to 40%, mildly enlarged right ventricular cavity . Trace mitral regurgitation, trace tricuspid regurgitation, and a tricuspid aortic valve. 2. A nuclear stress test on 11/02/2017 showed an EF of 85% and normal myocardial perfusion scan. HISTORY AND PHYSICAL: Ms. Johnson is a 57-year-old female, who presented to the Emergency Department with altered mental status on the day of admission 10/28/2017. The patient's son said that he spoke to the patient a couple days prior and was doing well and went to go see her, she was shaking and co mplaining of headache and gave her some water. She has been drinking a lot of fluids. Because she w as altered, EMS was activated. She was brought to the Emergency Department for evaluation, where she passed DKA versus a hyperosmotic nonketotic syndrome. The patient received a total of 3.6 liters of fluids and we were called for admission. HOSPITAL COURSE: The patient was seen and examined by Dr. Paz Urbina. She was admitted to the ICU on DKA protocol. Beta hydroxybutyric acid was elevated and A1c was ordered. She had abnormal el ectrolytes with hypomagnesemia, hypophosphatemia, hyperkalemia and these were replaced and elevated t roponins secondary to demand were present. The patient did meet sepsis criteria and started on broad -spectrum antibiotics. Due to a subacute subdural hematoma, Neurosurgery was consulted and recommended monitoring. Overnight 10/28/2017 to 10/29/2017, the patient was seen by Neurosurgery again and felt the patient w as stable, can be followed up in the neurosurgery office in 2-3 weeks. The patient was seen by Cardiology by Dr. Polo and her nurse practitioner, felt all of the elevated t roponins were due to demand ischemia. I have ordered echocardiogram and recommend a stress test, whi ch was more stable. The patient was seen by Dr. Micah Ahuja in consultation for being in the immediate care unit. He re commended current management and aggressive IV hydration. On 10/30/2017, Dr. Polo took over the case. The patient was more alert, but still looked dehydrated and still somewhat hypotensive. She was on IV fluids. Electrolytes were replaced. Blood sugar was under better control and she is monitoring in the ICU setting. On 10/31/2017, the patient had no new complaints. Clinically was improved. Vancomycin was discontin ued and Zosyn was continued. Urine culture growing gram negative rods. She was stable for transfer to the medical floor. By 11/01/2017, she continued to improve clinically. The patient was transitioned to long-acting insu ward with 70/30, Zosyn was stopped and changed to Rocephin and a rehab screen was ordered. On 11/02/2017, she continued to improve. Stress test was done that was negative and the patient had some urinary retention and urinary catheter was obtained that showed some yeast. She was stopped on regular antibiotics and transitioned to fluconazole. On 11/03/2017, she continued to improve. The patient had no funding for a retirement placement or home healthcare; however, no daughters or nursing can provide home services for her. She continue d on fluconazole and mental status was almost back to normal. On , I took her case over. She was alert and oriented x3. Started Olson catheter and was continued on fluconazole. The transition to p.o. and she was tolerating p.o. She will get and walk with physical therapy around the entire unit and was transitioned towards home. Today 11/05/2017, urinary catheter was removed, she was able to urinate on her own, she was stable fo r discharge with outpatient followup. PHYSICAL EXAMINATION: The patient was seen and examined on the day of discharge. Discharge plan and disposition was discussed with the patient [id number] at the bedside. DISCHARGE MEDICATIONS: 1. Fluconazole 200 mg p.o. daily for 5 more days. 2. Insulin 70/30, 10 units subcu q.p.m. and 15 units subcu q.a.m. 3. Iron sulfate 325 mg p.o. q.a.m. 4. Aspirin 81 mg daily. FOLLOWUP APPOINTMENTS: Patient to establish primary care. DISCHARGE DIET: Diabetic, heart healthy diet recommended. DISCHARGE ACTIVITY: Per cardiopulmonary limits. DISCHARGE CONDITION: Stable. DISPOSITION: He will be discharged home via private vehicle.
[2017-11-05 17:19] VITALS: TEMP 98.6
[2017-11-05 18:38] VITALS: BP 101/63
[2017-11-06] MEDS ORDERED: Fluconazole 100 MG TAB PO SCH (09:00)
== END 2017-11-05 20:05 | disposition home or self-care (01) | DRG 871 ==
LOC: ERS 18:11 → CCU 20:53 → T4-A 10-31 17:55
PROVIDERS: ADMIT Internal Medicine; ATTEND Internal Medicine
DX: A41.9 Sepsis, unspecified organism (principal); E11.01 Type 2 diabetes mellitus with hyperosmolarity with coma; G93.40 Encephalopathy, unspecified; E11.11 Type 2 diabetes mellitus with ketoacidosis with coma; I62.00 Nontraumatic subdural hemorrhage, unspecified; R64 Cachexia; E44.0 Moderate protein-calorie malnutrition; N17.9 Acute kidney failure, unspecified; I24.8 Other forms of acute ischemic heart disease; E83.39 Other disorders of phosphorus metabolism; I50.22 Chronic systolic (congestive) heart failure; E87.2 Acidosis; N39.0 Urinary tract infection, site not specified; E87.0 Hyperosmolality and hypernatremia; I11.0 Hypertensive heart disease with heart failure; R65.20 Severe sepsis without septic shock; R33.9 Retention of urine, unspecified; Z91.19 Patient's noncompliance with other medical treatment and regimen; E86.0 Dehydration; E83.42 Hypomagnesemia; Z79.4 Long term (current) use of insulin; F17.210 Nicotine dependence, cigarettes, uncomplicated
CPT/HCPCS: 36415; 36416; 51701; 70450; 71045; 78452; 80048; 80053; 80061; 80202; 80306; 80307; 81001; 81003; 81015; 82010; 82140; 82330; 82533; 82553; 82803; 83036; 83605; 83735; 83880; 84100; 84443; 84484; 85014; 85018; 85025; 85049; 85610; 85730; 87040; 87077; 87086; 87186; 87324; 87449; 93005; 93017; 93306; 96360; 96361; 96365; 96375; A4216; A4353; A9500; C9113; G8978-GP-CK; G8979-GP-CK; G8980-GP-CK; G8987-GO-CJ; G8988-GO-CI; J0696; J1450; J1650; J1815; J2060; J2543; J2785; J3370; J3475; J3480; J7050

== ENCOUNTER 2022-09-11 12:53 | Emergency (ER) | payer OTHER | END 2022-09-11 18:03 | disposition home or self-care (01) | LOC: ERS 12:53 | DX: R33.9 Retention of urine, unspecified (principal); I10 Essential (primary) hypertension; F17.210 Nicotine dependence, cigarettes, uncomplicated | CPT/HCPCS: 99283 ==